=== PATIENT | male | born 1955 | race Caucasian/White ===

== ENCOUNTER 2017-07-16 09:26 | Inpatient (IN) | payer BC ==
[2017-07-05 10:52] VITALS: BMI 35.3
[~2017-07-16 09:26] MED LIST: ACETAMINOPHEN TAB 500 MG TAB PO ONE; DEXAMETHASONE SOD PHOSPHATE 10 MG/ML 1 ML VIAL IV ONE; LACTATED RINGERS 1,000 ML IV SCH; LIDOCAINE 1% 20 ML VIAL (10MG/ML) FOR IV START INTRADERMA PRN; MELOXICAM 7.5 MG TAB PO ONE; MIDAZOLAM 2 MG/2 ML VIAL IV PRN; ONDANSETRON 4 MG/2 ML VIAL IVP ONE; SCOPOLAMINE 1.5MG/72HR PATCH TRANSDERM ONE; TRANEXAMIC ACID 1,000 MG in SODIUM CHLORIDE 0.9% 100 ML IVPB ONE; ceFAZolin 3 GM in SODIUM CHLORIDE 0.9% 100 ML IVPB ONE
[2017-07-16 10:59] LABS: Glucose,Whole Blood 156 mg/dL (75-99)
[2017-07-16] MEDS ORDERED: ROPIVACAINE 246.25 MG, EPINEPHrine 0.5 MG, KETOROLAC 30 MG, cloNIDine HCL/PF 80 MCG, WA... MISCELLANE ONE ×5 (12:33)
[2017-07-16] MEDS ORDERED: PROPOFOL 10 MG/ML 20 ML VIAL IV ONE (12:34)
[2017-07-16] MEDS ORDERED: NALOXONE 0.4 MG/ML 1 ML VIAL IV PRN (12:34)
[2017-07-16] MEDS ORDERED: fentaNYL (PF) 50 MCG/ML 2 ML AMP ONE (12:34)
[2017-07-16] MEDS ORDERED: ONDANSETRON 4 MG/2 ML VIAL IVP PRN (12:34)
[2017-07-16] MEDS ORDERED: NA PHOS,M-B/NA PHOS,DI-BA 133 ML ENEMA RECTAL PRN (12:34)
[2017-07-16] MEDS ORDERED: DIAZEPAM 5 MG TAB PO PRN ×2 (12:34)
[2017-07-16] MEDS ORDERED: SODIUM CHLORIDE 0.9% 100 ML BAG ONE (12:34)
[2017-07-16] MEDS ORDERED: MAGNESIUM HYDROXIDE 2,400 MG/10 ML CUP PO PRN (12:34)
[2017-07-16] MEDS ORDERED: TRANEXAMIC ACID 1,000 MG/10 ML VIAL ONE (12:34)
[2017-07-16] MEDS ORDERED: BISACODYL 10 MG SUPP RECTAL PRN (12:34)
[2017-07-16] MEDS ORDERED: MIDAZOLAM 2 MG/2 ML VIAL ONE (12:34)
[2017-07-16] MEDS ORDERED: HYDROcodone/APAP 5-325MG 1 EACH TAB PO PRN (12:34)
[2017-07-16] MEDS ORDERED: HYDROmorphone 1 MG/ML 1 ML SYRINGE IVP PRN ×3 (12:34)
[2017-07-16] MEDS ORDERED: CLINDAMYCIN 1,800 MG in SODIUM CHLORIDE 0.9% IRRIGATIO 3,000 ML IRRIGATION ONE (13:18)
[2017-07-16] MEDS ORDERED: LACTATED RINGERS 1,000 ML IV ONE ×2 (14:09)
--- NOTE | 2017-07-16 15:16 | P.OP ---
Date of Procedure: 07/16/17 Preoperative Diagnosis: Postoperative Diagnosis: Procedure(s) Performed: PREOPERATIVE DIAGNOSIS: Right knee severe osteoarthritis with very mild genu valgum POSTOPERATIVE DIAGNOSIS: 1. Right knee severe osteoarthritis with very mild genu valgum OPERATION: Right knee cemented total replacement arthroplasty. ANESTHESIA: Spinal ESTIMATED BLOOD LOSS: 50 ml. MACHINING ENGINEER: Eileen Rose PA-C (assistance with: patient positioning, retraction , exposure, hemostasis, leg positioning, implantation, irrigation, closure, dressing) COMPLICATIONS: None apparent. COMPONENTS IMPLANTED: Persona system from [employer] INDICATIONS: Mr. Lee is a 62-year-old male with a history of right knee osteoarthritis and very mild genu valgum. The operation of knee replacement has been discussed at length in the office, as well as potential risks and complications. These are inclusive of, but not limited to: bleeding, infection , scarring, discomfort, blood vessel and nerve damage, need for further surgery , failure to relieve symptoms, persistence, recurrence, or worsening of problems , loosening, dislocation, wear, blood clot, pulmonary embolism, , gait dysfunction, stiffness, and other risks as discussed in the office. The patient elects to proceed and the consent form has been signed. PROCEDURE: The patient was taken to the operating room and positioned on the operating room table in the supine position. Anesthesia was initiated. Care was taken to make sure that all pressure points were adequately padded. The operative lower extremity was prepped and draped in the usual aseptic fashion using ChloraPrep. Ioban drape was used for the case and the patient received intravenous antibiotics within one hour of the incision. A pneumotourniquet and leg kim were used for the case. The limb was exsanguinated with an Esmarch bandage and the tourniquet was inflated to 350 mmHg. Time-out was called confirming the patients identity, side, procedure and administration of antibiotics. The incision was then created midline directly over the knee, carried down through skin and into the subcutaneous tissues and down to fascia. Full thickness subcutaneous medial flap was developed. Medial parapatellar arthrotomy was performed and the interior of the knee was inspected. There was end-stage osteoarthritis of the knee with a mild to moderate genu valgum type deformity. Also noted was moderate osteoporosis , as evidenced by diminished cortical bone density as well as moderate softening of the cancellus bone, discovered during the course of the operation. The fat pad was excised and limited proximal medial release on the tibia was completed using meticulous dissection. The anterior cruciate ligament was taken down. The exposure was excellent. The knee was flexed 90 degrees and the patella was everted. A spot was chosen on the femur approximately 1 cm anterior to the posterior cruciate ligament insertion and an intramedullary hole was created within the femur. The intramedullary guide was then set to 5 degrees of valgus. The distal cutting block was attached and pinned into position. An appropriate amount of distal femoral resection was set. The oscillating saw was then used to make the distal femoral cut. This cut was confirmed to be flat with the flat end of an osteotome. The retractors were placed around the tibia and the tibial surface was addressed. The angle and depth of resection was adjusted using an extramedullary cutting guide. The guide had a built-in 3 degree posterior slope cut. Once the cutting guide was adjusted appropriately and in line with the axis of the tibia and confirmed to be in good position in relation to the second metatarsal and transmalleolar axis, the tibial cut was then created with protection of the posterior neurovascular structures and the collateral ligaments. The tibial cut surface was removed and sized. Femoral sizing was then accomplished using anterior referencing. Care was taken to analyze the posterior condyles for signs of deficiency or severe wear, and adjustments to the guide were made, as appropriate. Moderate to severe posterior spurring was noted, as well as a moderately to severely tight posterior cruciate ligament which therefore was released, see below. 3 degree external rotation pins were placed. The cutting jig for the femur was applied to these pins. The planned cuts were further analyzed prior to performing them with the oscillating saw. No femoral notching was produced. Bone fragments were removed and the cut surfaces were finished, as necessary, with a reciprocating saw. Spacer block technique was then used to confirm that the flexion and extension gaps were equal. Soft tissue releases and adjustment of the tibial and/or femoral cuts were made, as necessary, until the gaps were equal. This included release of the posterior cruciate ligament, which was tight in this patient and , if left unreleased, would have resulted in poor kinematics and possibly early loosening. The femur was then further finished for a posterior cruciate ligament substituting component. Patellar resurfacing was performed using a reamer. The size of the required patellar component was estimated and the patellar surface was then reamed down to a residual thickness which would recreate the [place] thickness with the component. The placement of the patellar component was influenced by the degree of patellar subluxation, if any, noted on the preoperative x-rays. Prior to placing trial components, anesthetic solution consisting of ropivicaine with epinephrine, ketorolac, and clonidine was injected carefully and methodically in a grid pattern using aspiration technique into the soft tissue around the knee circumferentially, starting with the deeper tissues first and progressing to fascia, and then finally the skin/subcutaneous tissue. Particular care was taken when injecting the posterior capsule. The trial components were inserted. The tibial tray was allowed to self center and the patella was noted to track very well. The position of the tibial component was marked and the tibia was then finished for a stemmed tibial component. Cement was mixed on the back table and applied to the final components. Trial components were removed and the cut surfaces of the bone were pulse lavaged thoroughly and dried. Cement was then applied to the tibial surface and pressurized into the surface using finger pressurization technique. The tibial component was then applied and excess cement was removed after it was impacted securely and noted to be flush with the cut surface. In similar fashion, the cement was applied to the cut femoral surface, pressurized in using finger pressurization and the component was impacted into place. Excess cement was removed. The polyethylene spacer was then implanted and locked into position. The patellar component was then applied in similar technique and a patellar clamp was used to hold the patella in place as the cement hardened. Once the cement had fully hardened, the knee was reinspected. Any other cement extrusion was removed and final kinematic testing showed range of motion from 0 to 130 degrees with excellent stability, both medially and laterally and appropriate alignment of the leg. Patellar tracking was excellent. The knee was then thoroughly pulse lavaged with normal saline. The tourniquet was deflated and hemostasis was obtained with electrocautery and IV tranexamic acid, 1 g given at the start of the operation and 1 g at the start of closure. Closure was with #2 Ethibond in the fascia and supplemented with #2 Quill, 2-0 Vicryl suture was used for the subcutaneous tissues and 3-0 Quill for the skin. Dermabond/Steri-Strips were then applied. A lightly compressive dressing was applied using Webril and an Efra wrap. The patient was then transferred to [facility] and taken to the recovery room in stable condition. Sponge and needle counts were correct. Implants: Indications for Procedure: Operative Findings: Description of Procedure:
--- NOTE | 2017-07-16 15:46 | XR ---
EXAMINATION TYPE: XR knee limited RT DATE OF EXAM: 07/16/2017 COMPARISON: NONE TECHNIQUE: Two views submitted HISTORY: Post op FINDINGS: There is a prosthetic knee in near anatomic alignment. There is soft tissue edema and emphysema. Va scular calcifications noted. IMPRESSION: 1. Postoperative change. Appears in near-anatomic alignment
[2017-07-16 15:58] LABS: Glucose,Whole Blood 219 mg/dL (75-99)
[2017-07-16] MEDS: HYDROmorphone 1 MG/ML 1 ML SYRINGE IVP PRN ×2 (16:03→16:10)
[2017-07-16] MEDS ORDERED: INSULIN LISPRO (humaLOG) 300 UNIT/3 ML VIAL SQ ONE (16:03)
[2017-07-16 17:06] LABS: Glucose,Whole Blood 207 mg/dL (75-99)
[2017-07-16] MEDS: SODIUM CHLORIDE 0.9% 1,000 ML IV SCH (17:16)
[2017-07-16] MEDS: INSULIN LISPRO (humaLOG) 300 UNIT/3 ML VIAL SQ SCH ×2 (18:29→20:15)
[2017-07-16 20:13] LABS: Glucose,Whole Blood 220 mg/dL (75-99)
[2017-07-16] MEDS: ceFAZolin 3 GM in SODIUM CHLORIDE 0.9% 100 ML IVPB SCH (20:14)
[2017-07-16] MEDS: ASPIRIN 325 MG TAB PO SCH (20:14)
[2017-07-16] MEDS: HYDROcodone/APAP 5-325MG 1 EACH TAB PO PRN (20:16)
[2017-07-16] MEDS ORDERED: SENNOSIDES-DOCUSATE SODIUM 1 EACH TAB PO SCH (21:00)
[2017-07-17] MEDS: hydrOXYzine PAMOATE 25 MG CAP PO PRN ×2 (01:47→08:37)
[2017-07-17] MEDS: HYDROcodone/APAP 5-325MG 1 EACH TAB PO PRN (01:48)
[2017-07-17] MEDS: SODIUM CHLORIDE 0.9% 1,000 ML IV SCH (05:15)
[2017-07-17] MEDS: ceFAZolin 3 GM in SODIUM CHLORIDE 0.9% 100 ML IVPB SCH (06:16)
[2017-07-17 06:51] LABS: Glucose,Whole Blood 168 mg/dL (75-99)
[2017-07-17 07:21] LABS: Basophils % (A) 0 %; CH 29.9; CHCM 34.8; Eosinophils % (A) 0 %; HCT 37.6 % (39.0-53.0); HDW 2.97; HGB 12.9 gm/dL (13.0-17.5); Luc # (Auto) 0.17; Luc % (Auto) 1; Lymphocytes # (A) 2.2 k/uL (1.0-4.8); Lymphocytes % (A) 15 %; MCH 29.5 pg (25.0-35.0); MCHC 34.3 g/dL (31.0-37.0); MCV 86.2 fL (80.0-100.0); Mean Platelet Volume 6.2; Monocytes # (A) 0.8 k/uL (0-1.0); Monocytes % (A) 5 %; Neutrophils # (A) 11.2 k/uL (1.3-7.7); Neutrophils % (A) 78 %; RBC 4.36 m/uL (4.30-5.90); RDW 14.1 % (11.5-15.5); WBC 14.4 k/uL (3.8-10.6); WBC (Perox) 15.54
[2017-07-17] MEDS ORDERED: HYDROcodone/APAP 7.5-325MG 1 EACH TAB PO PRN ×2 (08:13)
--- NOTE | 2017-07-17 08:24 | P.DS ---
Providers Date of admission: 07/16/17 09:26 Expected date of discharge: 07/17/17 Attending physician: Deric Dupree Consults: 07/16/17 12:42 Consult Physician Routine Consulting Provider: Kvng Neal Consult Reason/Comments: medical management Do you want consulting provider notified?: Yes 07/16/17 18:20 Consult Physician Routine Consulting Provider: Ryne Herrera Consult Reason/Comments: medical managment Do you want consulting provider notified?: Already Contacted Primary care physician: Stated None - Discharge Diagnosis(es) (1) Primary osteoarthritis of right knee Current Visit: Yes Status: Acute (2) S/P total knee arthroplasty Current Visit: Yes Status: Acute Hospital Course: This is a 62-year-old male with known history of degenerative arthritis of the right knee. The patient presents for evaluation. After discussion and consideration patient elects to proceed with total knee arthroplasty. The patient is seen preoperatively by Dr. Dupree and cleared for surgery. Patient is admitted to [facility] on 07/16/2017 for total knee arthroplasty. The procedures performed without complication or sequelae. The patient is doing well postoperatively. Labs and vital signs are stable on day of discharge. On day of discharge patient's knee incision is healing well. There is minimal erythema. There is no drainage noted at this time. There is minimal soft tissue swelling to the knee. Patient has full foot and ankle motion without difficulty or pain. Neurovascular status to the right lower extremity is intact. Patient is discharged home in good condition. Please see med rec for accurate list of home medications. Plan - Discharge Summary New Discharge Prescriptions: New Aspirin 325 mg PO BID #60 tab HYDROcodone/APAP 7.5-325MG [[place] 7.5-325] 1 - 2 tab PO Q4-6H PRN #90 tab PRN Reason: Pain Sennosides-Docusate Sodium [Senokot-S] 1 tab PO BID #60 tablet No Action traMADol HCL [Ultram] 50 mg PO Q8HR PRN PRN Reason: Pain metFORMIN HCL [Glucophage] 1,000 mg PO BID Insulin Glargine [Lantus] 35 unit SQ QAM Discharge Medication List Insulin Glargine [Lantus] 35 unit SQ QAM 07/05/17 [History] metFORMIN HCL [Glucophage] 1,000 mg PO BID 07/05/17 [History] traMADol HCL [Ultram] 50 mg PO Q8HR PRN 07/05/17 [History] Aspirin 325 mg PO BID #60 tab 07/17/17 [Rx] HYDROcodone/APAP 7.5-325MG [[place] 7.5-325] 1 - 2 tab PO Q4-6H PRN #90 tab [Rx] Sennosides-Docusate Sodium [Senokot-S] 1 tab PO BID #60 tablet 07/17/17 [Rx] Follow up Appointment(s)/Referral(s): Deric Dupree MD [STAFF PHYSICIAN] - 2 Weeks Ambulatory/Diagnostic Orders: Continuous Passive Motion (CPM) Machine [DME.AMB1] Time Frame: 2 Weeks, Location : Determined By Patient Activity/Diet/Wound Care/Special Instructions: Weightbearing as tolerated with a walker CPM 5-6h daily Daily dressing changes, keep incision clean and dry May shower if no drainage from incision [facility] with questions or concerns [phone] Discharge Disposition: HOME WITH HOME HEALTH SERVICES
[2017-07-17] MEDS: ASPIRIN 325 MG TAB PO SCH (08:30)
[2017-07-17] MEDS: INSULIN LISPRO (humaLOG) 300 UNIT/3 ML VIAL SQ SCH ×2 (08:33→12:36)
[2017-07-17] MEDS ORDERED: MELOXICAM 7.5 MG TAB PO SCH (09:00)
[2017-07-17 09:10] VITALS: PULSE 75; RESP 14; TEMP 98.1
[2017-07-17 11:18] LABS: Glucose,Whole Blood 181 mg/dL (75-99)
[2017-07-17 11:41] LABS: Hemoglobin A1C 7.8 % (4.2-6.1)
[2017-07-17] MEDS ORDERED: INSULIN GLARGINE 100 UNIT/ML 10 ML VIAL SQ SCH (12:15)
[2017-07-17] MEDS ORDERED: metFORMIN 500 MG TAB PO SCH (12:15)
[2017-07-17 13:18] VITALS: BP 109/70
--- NOTE | 2017-07-17 15:10 | CONS ---
DATE OF CONSULTATION: 07/17/2017 REASON FOR CONSULTATION: Medical management requested by Dr. Dupree. CONSULTATION: This is a very pleasant 62-year-old patient of Dr. Neal. Underwent a right total knee arthroplasty yesterday. Pain is controlled. No nausea or vomiting. Did tolerated some breakfast, no chest pain. Did work with Therapy. Patient's chronic stable medical conditions include diabetes on insulin, DVT as a child, hypertension, osteoarthritis. REVIEW OF SYSTEMS: CONSTITUTIONAL: None. HEENT: None. RESPIRATORY: None. CARDIOVASCULAR: None. GASTROINTESTINAL: None. GENITOURINARY: None. MUSCULOSKELETAL: Pain in different joints. DERMATOLOGICAL: None. HEMATOLOGICAL: None. LYMPHATICS: None. PSYCHIATRY: None. NEUROLOGICAL: None. Past medical history of diabetes, DVT as a child, hypertension, osteoarthritis. PAST SURGICAL HISTORY: Appendectomy, back surgery, tendon from left knee to right knee, bilateral thumb surgery, total right knee arthroplasty. SOCIAL HISTORY: Drinks, cigar rarely, lives by himself. Currently not working. Alcohol none. Family history of lung cancer. HOME MEDICATIONS: Glucophage 1000 mg p.o. b.i.d., Lantus 35 units in the morning, Senokot S 1 tablet p.o. b.i.d. Allergies to PENICILLIN. On examination, temperature 98.1, pulse 75, respirations 14, blood pressure 136/ 95, pulse ox 95% on room air. GENERAL APPEARANCE: Well built, BMI of 35.3, sitting on the edge of bed, comfortable. EYES: Pupil equal, conjunctive normal. HEENT: Oral cavity normal. NECK: JVD not raised, mass not palpable. RESPIRATORY EFFORT: Lungs are clear. CARDIOVASCULAR: First and second sounds are normal. No edema. ABDOMEN: Soft, nontender. Liver and spleen not palpable. LYMPHATICS: No lymph node palpable in neck and axillae. PSYCHIATRY: Alert and oriented x3, mood and affect normal. EXTREMITIES: Right knee in a dressing. INVESTIGATIONS: White count 14.4, hemoglobin 12.9, Accu-Cheks are noted. ASSESSMENT: 1. Right total knee arthroplasty. 2. Primary osteoarthritis. 3. Obesity, body mass index of 35.3. 4. Diabetes mellitus type 2, chronically on insulin. 5. Leukocytosis, likely reactive from surgery. No clinical evidence of infection. 6. Essential hypertension. PLAN: 1. For DVT prophylaxis, patient is getting aspirin by Dr. Dupree. 2. Resume insulin, follow Accu-Cheks. Patient should see a junior software developer as an outpatient for weight loss measures. He will follow up with his family doctor in a week's time. Thank you Dr. Dupree. VLAD
== END 2017-07-17 13:05 | disposition home health service (06) | DRG 470 ==
LOC: 2ORMAIN 09:26 → 3SUR 15:54
PROVIDERS: ADMIT Orthopaedic Surgery; ATTEND Orthopaedic Surgery
PROC: 0SRC0J9 Replacement of Right Knee Joint with Synthetic Substitute, Cemented, Open Approach (ICD-10-PCS; principal; 2017-07-16 12:30)
DX: M17.11 Unilateral primary osteoarthritis, right knee (principal); E66.9 Obesity, unspecified; I10 Essential (primary) hypertension; E11.9 Type 2 diabetes mellitus without complications; M21.061 Valgus deformity, not elsewhere classified, right knee; H91.90 Unspecified hearing loss, unspecified ear; M81.0 Age-related osteoporosis without current pathological fracture; Z68.35 Body mass index [BMI] 35.0-35.9, adult; Z79.84 Long term (current) use of oral hypoglycemic drugs; Z79.4 Long term (current) use of insulin; Z79.899 Other long term (current) drug therapy; Z86.718 Personal history of other venous thrombosis and embolism; Z88.0 Allergy status to penicillin
CPT/HCPCS: 83036; 85025; 88300

== ENCOUNTER 2017-07-23 08:23 | Emergency (ER) | payer BC ==
[2017-07-23 08:28] VITALS: BP 133/74; PULSE 77; RESP 18; TEMP 98.8
[2017-07-23] MEDS ORDERED: HYDROcodone/APAP 7.5-325MG 1 EACH TAB PO ONE (08:44)
--- NOTE | 2017-07-23 08:47 | ED ---
Extremity Problem HPI - General Chief complaint: Extremity Problem,Nontraumatic Stated complaint: post op leg pain Time Seen by Provider: 07/23/17 08:33 Source: patient, RN notes reviewed Mode of arrival: wheelchair Limitations: no limitations - History of Present Illness Initial comments: Patient 62-year-old male status post right knee replacement 2 weeks, who presents emergency room today with chief complaint of increased pain and redness to the right lower extremity. Patient does admit that at some discomfort yesterday with increased redness over the anterior aspect today with increased pain. Patient denies any other complaints or symptoms. Patient denies any recent fever, chills, shortness of breath, chest pain, back pain, abdominal pain, nausea or vomiting, numbness or tingling, dysuria or hematuria, constipation or diarrhea, headaches or visual changes, or any other complaints. - Related Data Home Medications Medication Instructions Recorded Confirmed Insulin Glargine [Lantus] 35 unit SQ DAILY 07/05/17 07/23/17 metFORMIN HCL [Glucophage] 1,000 mg PO BID 07/05/17 07/23/17 traMADol HCL [Ultram] 50 mg PO Q8HR PRN 07/05/17 07/23/17 Previous Rx's Medication Instructions Recorded Aspirin 325 mg PO BID #60 tab 07/17/17 HYDROcodone/APAP 7.5-325MG [[place] 1 - 2 tab PO Q4-6H PRN #90 tab 07/17/17 7.5-325] Sennosides-Docusate Sodium 1 tab PO BID #60 tablet 07/17/17 [Senokot-S] Cephalexin [Keflex] 500 mg PO Q12HR 10 Days 07/23/17 Allergies Allergy/AdvReac Type Severity Reaction Status Date / Time Penicillins Allergy Unknown Unknown Verified 07/23/17 09:34 Childhood Review of Systems ROS Statement: Those systems with pertinent positive or pertinent negative responses have been documented in the HPI. ROS Other: All systems not noted in ROS Statement are negative. Past Medical History Past Medical History: Diabetes Mellitus, Deep Vein Thrombosis (DVT), Hypertension, Osteoarthritis (OA) Additional Past Medical History / Comment(s): BLOOD CLOT IN RIGHT LEG A CHILD. , STATES JAUNDICE (HEPATITIS) CHILD., NO CURRENT BP MEDS., RIGHT KNEE GIVES OUT AND HE HAS FALLEN DOWN STAIRS- LEFT KNEE ABRASION. History of Any Multi-Drug Resistant Organisms: None Reported Past Surgical History: Appendectomy, Back Surgery, Orthopedic Surgery Additional Past Surgical History / Comment(s): ARTHROSCOPY KNEE, TENDON FROM LEFT KNEE TO RIGHT KNEE., JOSSELYN THUMB SURGERY, TOTAL RIGHT KNEE ARTHROPLASTY. Past Anesthesia/Blood Transfusion Reactions: No Reported Reaction Additional Past Anesthesia/Blood Transfusion Reaction / Comment(s): WAKES UP DURING SURGERY. Past Psychological History: No Psychological Hx Reported Smoking Status: Current some day smoker Past Alcohol Use History: None Reported Past Drug Use History: None Reported - Past Family History Father History Unknown: Yes Family Medical History: Cancer Additional Family Medical History / Comment(s): LUNG CANCER General Exam - General Exam Comments Initial Comments: General: The patient is awake and alert, in no distress, and does not appear acutely ill. Neck: The neck is supple, there is no tenderness or JVD. Cardiovascular: There is a regular rate and rhythm. No murmur, rub or gallop is appreciated. Respiratory: Lungs are clear to auscultation, respirations are non-labored, breath sounds are equal. No wheezes, stridor, rales, or rhonchi. Musculoskeletal: Patient does have surgical incision over the right anterior aspect of the right knee. Appears to be healing well. There is no redness or erythema locally to this area. Patient does have small abrasion to the lower aspect anterior brown. There is some local redness. There is some redness to the anterior aspect of the right lower leg. He does have tenderness in the back of the calf with a positive Homans. Sensations are intact pulses equal bilaterally 2+. Shows good range of motion. Neurological: A&O x 3. CN II-XII intact, There are no obvious motor or sensory deficits. Coordination appears grossly intact. Speech is normal. Psychiatric: Normal mood and affect. Limitations: no limitations Course Vital Signs 07/23/17 08:24 Temperature 98.8 F Pulse Rate 77 Respiratory 18 Rate Blood Pressure 133/74 O2 Sat by Pulse 99 Oximetry Medical Decision Making - Medical Decision Making Case discussed in detail with attending physician Dr. Lenz. Patient reexamined at this time shows no signs of distress resting comfortably. Also negative for any evidence of DVT. Patient does have some redness to the anterior aspect of the left brown. There is no redness around the incision site of the left knee. There is no evidence for an infected joint. Patient's pain is down lower over the redness over the brown area. Patient will be started on antibiotic. He is advised follow-up with his orthopedic doctor tomorrow. Advised return for any other concerns. Disposition Clinical Impression: Cellulitis of leg, right Disposition: HOME SELF-CARE Condition: Good Instructions: Cellulitis (ED) Additional Instructions: Please use antibiotic as prescribed. Please follow-up with orthopedics tomorrow. Please return to emergency room symptoms increase or worsen or for new concerns as discussed. Prescriptions: Cephalexin [Keflex] 500 mg PO Q12HR 10 Days Referrals: Kvng Neal DO [Primary Care Provider] - 1-2 days Deric Dupree MD [STAFF PHYSICIAN] - 1-2 days Time of Disposition: 09:37
--- NOTE | 2017-07-23 09:23 | US ---
EXAMINATION TYPE: US venous doppler duplex LE RT DATE OF EXAM: 07/23/2017 9:17 AM COMPARISON: NONE CLINICAL HISTORY: Pain. Recent right knee replacement surgery 2 weeks ago. SIDE PERFORMED: Right TECHNIQUE: The lower extremity deep venous system is examined utilizing real time linear array sonog alexander with graded compression, doppler sonography and color-flow sonography. VESSELS IMAGED: External Iliac Vein (EIV) Common Femoral Vein Deep Femoral Vein Greater Saphenous Vein * Femoral Vein Popliteal Vein Small Saphenous Vein * Proximal Calf Veins (* superficial vessels) Right Leg: Negative for DVT Grayscale, color doppler, spectral doppler imaging performed of the deep veins of the right lower ext remity. There is normal flow, compressibility, and vascular waveforms identified. IMPRESSION: No ultrasound evidence for acute DVT in the right lower extremity.
== END 2017-07-23 10:00 | disposition home or self-care (01) ==
LOC: EC 08:23
DX: L03.115 Cellulitis of right lower limb (principal); E11.9 Type 2 diabetes mellitus without complications; F17.200 Nicotine dependence, unspecified, uncomplicated; Z96.651 Presence of right artificial knee joint; Z86.718 Personal history of other venous thrombosis and embolism; Z88.0 Allergy status to penicillin; Z79.4 Long term (current) use of insulin; Z79.84 Long term (current) use of oral hypoglycemic drugs
CPT/HCPCS: 99283

== ENCOUNTER → 2017-07-24 | Outpatient (CLI) | payer BC ==
[2017-07-24 15:01] LABS: CHCM 34.4; HCT 37.3 % (39.0-53.0); HDW 3.33; HGB 13.1 gm/dL (13.0-17.5); MCH 29.8 pg (25.0-35.0); MCHC 35.1 g/dL (31.0-37.0); MCV 84.7 fL (80.0-100.0); Mean Platelet Volume 6.6; RBC 4.41 m/uL (4.30-5.90); RDW 13.7 % (11.5-15.5); WBC 13.8 k/uL (3.8-10.6)
[2017-07-24 16:54] LABS: RBC, Body Fluid 182000 /uL
[2017-07-24 19:45] LABS: Erythrocyte Sedimentation Rate 46 mm/hr (0-15)
== END | disposition home or self-care (01) ==
LOC: LABWHC1 14:30 → EDSTATUS 14:36
PROVIDERS: ATTEND Orthopaedic Surgery
DX: M17.11 Unilateral primary osteoarthritis, right knee (principal); E11.9 Type 2 diabetes mellitus without complications; S83.519D Sprain of anterior cruciate ligament of unspecified knee, subsequent encounter; Z47.1 Aftercare following joint replacement surgery; Z96.651 Presence of right artificial knee joint; M25.061 Hemarthrosis, right knee
CPT/HCPCS: 36415; 83520; 85027; 85652; 86140; 87070; 87075; 87205; 89050

== ENCOUNTER 2017-11-26 05:43 | Observation (INO) | payer BC ==
[~2017-11-26 05:43] MED LIST changes: +CLINDAMYCIN 900 MG in DEXTROSE 5% IN WATER 50 ML IVPB ONE; -DEXAMETHASONE SOD PHOSPHATE 10 MG/ML 1 ML VIAL IV ONE; -MIDAZOLAM 2 MG/2 ML VIAL IV PRN; -SCOPOLAMINE 1.5MG/72HR PATCH TRANSDERM ONE; -ceFAZolin 3 GM in SODIUM CHLORIDE 0.9% 100 ML IVPB ONE
[2017-11-26 07:12] LABS: Glucose,Whole Blood 127 mg/dL (75-99)
[2017-11-26] MEDS ORDERED: ROPIVACAINE 246.25 MG, EPINEPHrine 0.5 MG, KETOROLAC 30 MG, cloNIDine HCL/PF 80 MCG, WA... MISCELLANE ONE ×5 (07:51)
[2017-11-26] MEDS ORDERED: PHENYLEPHRINE-0.9% NACL SYG 1 MG/10 ML SYRINGE ONE (08:12)
[2017-11-26] MEDS ORDERED: GLYCOPYRROLATE 0.2 MG/ML 2 ML VIAL ONE (08:12)
[2017-11-26] MEDS ORDERED: SODIUM CHLORIDE 0.9% 100 ML BAG ONE (08:12)
[2017-11-26] MEDS ORDERED: MIDAZOLAM 2 MG/2 ML VIAL ONE (08:12)
[2017-11-26] MEDS ORDERED: KETAMINE 10 MG/ML 20 ML VIAL ONE (08:12)
[2017-11-26] MEDS ORDERED: fentaNYL (PF) 50 MCG/ML 2 ML AMP ONE (08:12)
[2017-11-26] MEDS ORDERED: diphenhydrAMINE 50 MG/ML 1 ML VIAL ONE (08:12)
[2017-11-26] MEDS ORDERED: PROPOFOL 10 MG/ML 20 ML VIAL IV ONE (08:12)
[2017-11-26] MEDS ORDERED: TRANEXAMIC ACID 1,000 MG/10 ML VIAL ONE (08:12)
[2017-11-26] MEDS ORDERED: SODIUM CHLORIDE 0.9% 50 ML with ceFAZolin 3,000 MG IV ONE ×2 (08:52)
[2017-11-26] MEDS ORDERED: LACTATED RINGERS 1,000 ML IV ONE ×2 (09:08)
[2017-11-26] MEDS ORDERED: CLINDAMYCIN 1,800 MG in SODIUM CHLORIDE 0.9% IRRIGATIO 3,000 ML IRRIGATION ONE (09:09)
[2017-11-26] MEDS ORDERED: NA PHOS,M-B/NA PHOS,DI-BA 133 ML ENEMA RECTAL PRN (11:30)
[2017-11-26] MEDS ORDERED: ACETAMINOPHEN TAB 325 MG TAB PO PRN (11:30)
[2017-11-26] MEDS ORDERED: NALOXONE 0.4 MG/ML 1 ML VIAL IV PRN (11:30)
[2017-11-26] MEDS ORDERED: HYDROcodone/APAP 7.5-325MG 1 EACH TAB PO PRN (11:30)
[2017-11-26] MEDS ORDERED: MAGNESIUM HYDROXIDE 2,400 MG/10 ML CUP PO PRN (11:30)
[2017-11-26] MEDS ORDERED: TEMAZEPAM 15 MG CAP PO PRN (11:30)
[2017-11-26] MEDS ORDERED: HYDROmorphone 2 MG/ML 1 ML SYRINGE IVP PRN (11:30)
[2017-11-26] MEDS ORDERED: BISACODYL 10 MG SUPP RECTAL PRN (11:30)
[2017-11-26] MEDS ORDERED: ONDANSETRON 4 MG/2 ML VIAL IVP PRN (11:30)
[2017-11-26 11:32] LABS: Glucose,Whole Blood 149 mg/dL (75-99)
--- NOTE | 2017-11-26 11:56 | XR ---
EXAMINATION TYPE: XR knee limited LT DATE OF EXAM: 11/26/2017 COMPARISON: NONE TECHNIQUE: Two views submitted HISTORY: Post op FINDINGS: There is a prosthetic knee in near anatomic alignment. There is soft tissue edema and emphysema. IMPRESSION: 1. Postoperative change. Appears in near-anatomic alignment
--- NOTE | 2017-11-26 12:09 | P.OP ---
Date of Procedure: 11/26/17 Procedure(s) Performed: PREOPERATIVE DIAGNOSIS: 1 . Left knee severe osteoarthritis with genu varum. 2. Status post ACL reconstruction with metallic screws POSTOPERATIVE DIAGNOSIS: 1. Left knee severe osteoarthritis with genu varum 2. Status post ACL reconstruction with metallic screws OPERATION: Left knee cemented total replacement arthroplasty with removal of one ACL interference screw (tibial). ANESTHESIA: Spinal ESTIMATED BLOOD LOSS: 150 ml. SALES AND MARKETING PROFESSIONAL: Berenice Appiah PA-C (assistance with: patient positioning, retraction, exposure, hemostasis, leg positioning, implantation, irrigation, closure, dressing) COMPLICATIONS: None apparent. COMPONENTS IMPLANTED: Persona system from [employer] INDICATIONS: Yvan is a 62-year-old male with a history of knee osteoarthritis who is many years status post a ACL reconstruction of his left knee. This was a bone tendon bone operation with metallic interference screws placed in both the tibia and the femur. He wishes to have knee replacement at this point. The operation of knee replacement with removal of one or both screws has been discussed at length in the office, as well as potential risks and complications. These are inclusive of, but not limited to: bleeding, infection , scarring, discomfort, blood vessel and nerve damage, need for further surgery , failure to relieve symptoms, persistence, recurrence, or worsening of problems , loosening, dislocation, wear, blood clot, pulmonary embolism, , gait dysfunction, stiffness, and other risks as discussed in the office. The patient elects to proceed and the consent form has been signed. PROCEDURE: The patient was taken to the operating room and positioned on the operating room table in the supine position. Anesthesia was initiated. Care was taken to make sure that all pressure points were adequately padded. The operative lower extremity was prepped and draped in the usual aseptic fashion using ChloraPrep. Ioban drape was used for the case and the patient received intravenous antibiotics within one hour of the incision. A pneumotourniquet and leg kim were used for the case. The limb was exsanguinated with an Esmarch bandage and the tourniquet was inflated to 350 mmHg. Time-out was called confirming the patient's identity, side, procedure and administration of antibiotics and tranexamic acid. The incision was then created midline directly over the knee, carried down through skin and into the subcutaneous tissues and down to fascia. Full thickness subcutaneous medial flap was developed. Medial parapatellar arthrotomy was performed and the interior of the knee was inspected. There was end-stage osteoarthritis of the knee with a mild to moderate genu varum type deformity. The fat pad was excised and proximal medial release on the tibia was completed using meticulous dissection and a curved osteotome. This procedure revealed the tibial interference screw , which was somewhat prominent outside of the bone and was easily removed using a 3.5 mm hexhead screwdriver. The anterior cruciate ligament was taken down. Note was made of significant attrition of the anterior and significant degenerative appearance of the posterior cruciate ligaments. The exposure was excellent. The knee was flexed 90 degrees and the patella was everted. A spot was chosen on the femur approximately 1 cm anterior to the posterior cruciate ligament insertion and an intramedullary hole was created within the femur. The intramedullary guide was then set to 5 degrees of valgus. The distal cutting block was attached and pinned into position. An appropriate amount of distal femoral resection was set. The oscillating saw was then used to make the distal femoral cut. This cut was confirmed to be flat with the flat end of an osteotome. The retractors were placed around the tibia and the tibial surface was addressed. The angle and depth of resection was adjusted using an extramedullary cutting guide. The guide had a built-in 3 degree posterior slope cut. Once the cutting guide was adjusted appropriately and in line with the axis of the tibia and confirmed to be in good position in relation to the second metatarsal and transmalleolar axis, the tibial cut was then created with protection of the posterior neurovascular structures and the collateral ligaments. The tibial cut surface was removed and sized. Femoral sizing was then accomplished using anterior referencing. Care was taken to analyze the posterior condyles for signs of deficiency or severe wear, and adjustments to the guide were made, as appropriate. 3 degree external rotation pins were placed. The cutting jig for the femur was applied to these pins. The planned cuts were further analyzed prior to performing them with the oscillating saw. No femoral notching was produced. Bone fragments were removed and the cut surfaces were finished, as necessary, with a reciprocating saw. Spacer block technique was then used to confirm that the flexion and extension gaps were equal. Soft tissue releases and adjustment of the tibial and/or femoral cuts were made, as necessary, until the gaps were equal. This included release of the posterior cruciate ligament, which was tight in this patient and , if left unreleased, would have resulted in poor kinematics and possibly early loosening. The femur was then further finished for a posterior cruciate ligament substituting component. The interference screw in the femur did not interfere with any of the cuts. Patellar resurfacing was performed using a reamer. The size of the required patellar component was estimated and the patellar surface was then reamed down to a residual thickness which would recreate the [place] thickness with the component. The placement of the patellar component was influenced by the degree of patellar subluxation, if any, noted on the preoperative x-rays. Prior to placing trial components, anesthetic solution consisting of ropivicaine with epinephrine, ketorolac, and clonidine was injected carefully and methodically in a grid pattern using aspiration technique into the soft tissue around the knee circumferentially, starting with the deeper tissues first and progressing to fascia, and then finally the skin/subcutaneous tissue. Particular care was taken when injecting the posterior capsule. The trial components were inserted. The tibial tray was allowed to self center and the patella was noted to track very well. The position of the tibial component was marked and the tibia was then finished for a stemmed tibial component. Cement was mixed on the back table and applied to the final components. Trial components were removed and the cut surfaces of the bone were pulse lavaged thoroughly and dried. Cement was then applied to the tibial surface and pressurized into the surface using finger pressurization technique. The tibial component was then applied and excess cement was removed after it was impacted securely and noted to be flush with the cut surface. In similar fashion, the cement was applied to the cut femoral surface, pressurized in using finger pressurization and the component was impacted into place. Excess cement was removed. The polyethylene spacer was then implanted and locked into position. The patellar component was then applied in similar technique and a patellar clamp was used to hold the patella in place as the cement hardened. Once the cement had fully hardened, the knee was reinspected. Any other cement extrusion was removed and final kinematic testing showed range of motion from 0 to 130 degrees with excellent stability, both medially and laterally and appropriate alignment of the leg. Patellar tracking was excellent. The knee was then thoroughly pulse lavaged with normal saline. The tourniquet was deflated and hemostasis was obtained with electrocautery and IV tranexamic acid, 1 g given prior to inflation of the tourniquet and another gram given at the time of closure. Closure was with #2 Ethibond in the fascia and supplemented with #2 Quill, 2-0 Vicryl suture was used for the subcutaneous tissues and 3-0 Quill for the skin. Dermabond/Steri-Strips were then applied. A lightly compressive dressing was applied using Webril and an Efra wrap. The patient was then transferred to [facility] and taken to the recovery room in stable condition. Sponge and needle counts were correct.
[2017-11-26] MEDS: HYDROmorphone 0.5 MG/0.5 ML SYRINGE IVP PRN ×4 (12:35→13:00)
[2017-11-26] MEDS: LACTATED RINGERS 1,000 ML IV SCH ×2 (15:09→16:57)
[2017-11-26] MEDS ORDERED: ceFAZolin 3 GM in SODIUM CHLORIDE 0.9% 100 ML IVPB SCH (16:00)
[2017-11-26] MEDS ORDERED: ceFAZolin 3 GM in SODIUM CHLORIDE 0.9% 100 ML IVPB ONE (16:00)
[2017-11-26] MEDS ORDERED: INSULIN DETEMIR 100 UNIT/ML 10 ML VIAL SQ ONE (16:45)
--- NOTE | 2017-11-26 16:50 | P.CONS ---
History of Present Illness - Reason for Consult Consult date: 11/26/17 diabetic management Requesting physician: Deric Dupree - Chief Complaint left knee pain - History of Present Illness Patient is a 62-year-old male past medical history of diabetes, arthritis, hearing loss, and morbid obesity presented for elective total knee arthroplasty. He underwent this on 11/26 without complications. We were asked to follow the patient for diabetic management. He did not take his insulin on the day of surgery. His morning blood sugar was 188 and his blood sugar postoperatively was 149. Patient seen and examined at bedside. He states that prior to surgery he was having some sinus drainage which is chronic for him this time of year. He is not taking any medications for it. He states he normally takes Lantus 65 units at night and takes NovoLog as needed if his blood sugar is greater than 250. He believes he takes 40 units at that number. He also takes metformin 1000 units twice daily. He did not take any medications before surgery. After surgery he is complaining of some left knee pain as well as some lightheadedness. He denies any nausea or vomiting. He has not been sick or ill recently. He denies any chest pain shortness of breath, diarrhea, constipation, or dysuria. He has chronic urinary frequency. Review of Systems Pertinent positives and negatives as per HPI, remainder of 12 point review of systems is negative. Past Medical History Past Medical History: Diabetes Mellitus, Deep Vein Thrombosis (DVT), Osteoarthritis (OA) Additional Past Medical History / Comment(s): BLOOD CLOT IN RIGHT LEG A CHILD. , STATES JAUNDICE (HEPATITIS) CHILD. History of Any Multi-Drug Resistant Organisms: None Reported Past Surgical History: Appendectomy, Back Surgery, Orthopedic Surgery Additional Past Surgical History / Comment(s): ARTHROSCOPY KNEE, TENDON FROM LEFT KNEE TO RIGHT KNEE., JOSSELYN THUMB SURGERY, TOTAL RIGHT KNEE ARTHROPLASTY. DISCECTOMY LUMBAR SPINE. Past Anesthesia/Blood Transfusion Reactions: No Reported Reaction Additional Past Anesthesia/Blood Transfusion Reaction / Comm: WAKES UP DURING SURGERY. Smoking Status: Current some day smoker Additional History: His children live with him. He was using a cane and walker prior to surgery. - Past Family History Father History Unknown: Yes Family Medical History: Cancer Additional Family Medical History / Comment(s): LUNG CANCER Mother Family Medical History: CVA/TIA Medications and Allergies Home Medications Medication Instructions Recorded Confirmed Type Insulin Glargine [Lantus] 65 unit SQ DAILY 07/05/17 11/15/17 History metFORMIN HCL [Glucophage] 1,000 mg PO BID 07/05/17 11/15/17 History Aspirin 325 mg PO Q6H PRN 11/15/17 11/26/17 History Insulin Aspart [NovoLOG See Protocol SQ ACHS 11/15/17 11/15/17 History (formulary)] Allergies Allergy/AdvReac Type Severity Reaction Status Date / Time Penicillins Allergy Unknown Unknown Verified 11/26/17 06:41 Childhood Physical Exam Osteopathic Statement: *. No significant issues noted on an osteopathic structural exam other than those noted in the History and Physical/Consult. Vitals: Vital Signs Temp Pulse Pulse Resp BP Pulse Ox 11/26/17 15:00 73 18 131/71 97 11/26/17 14:05 79 18 129/72 98 11/26/17 13:29 82 18 123/72 98 11/26/17 13:00 75 18 118/66 94 L 11/26/17 12:30 89 18 118/70 94 L 11/26/17 12:00 74 18 111/62 95 11/26/17 11:45 78 18 110/68 97 11/26/17 11:30 77 14 110/68 98 11/26/17 11:13 97.9 F 83 14 111/65 98 11/26/17 06:44 98.0 F 78 18 137/78 94 L Intake and Output 11/26/17 11/26/17 11/26/17 06:59 14:59 22:59 Intake Total 2207 400 Output Total 400 100 Balance 1807 300 Intake: IV 2207 400 Output: Urine 100 Estimated Blood Loss 400 General: non toxic, no distress, appears at stated age, Obese Derm: no unusual rashes/lesions no unusual ecchymoses, warm, dry, dressing in place over left leg Head: atraumatic, normocephalic, symmetric Eyes: EOMI, no lid lag, anicteric sclera, pupils equal round reactive to light ENT: Nose and ears atraumatic, no thrush, no pharyngeal erythema Neck: No thyromegaly, no cervical lymphadenopathy, trachea midline, supple Mouth: no lip lesion, mucus membranes moist Cardiovascular: S1S2 reg, no murmur, positive posterior tibial pulse bilateral, no edema, capillary refill less than 2 seconds Lungs: CTA bilateral, no rhonchi, no rales , no accessory muscle use Abdominal: soft, nontender to palpation, no guarding, no appreciable organomegaly, normal bowel sounds Ext: no gross muscle atrophy, muscle strength 5 out of 5 in b/l upper extremities grossly, no contractures, Neuro: CN II-XI grossly intact, light touch intact all 4 extremities, finger to nose within normal limits, Psych: Alert, oriented, appropriate affect Results Labs: Abnormal Lab Results - Last 24 Hours (Table) 11/26/17 11/26/17 Range/Units 06:59 11:30 POC Glucose (mg/dL) 127 H 149 H (75-99) mg/dL Assessment and Plan Assessment: Left total knee arthroplasty postop day 0 secondary to arthritis -Pain control -DVT prophylaxis per orthopedics -PT/OT -Bowel regiment -Check CBC and basic metabolic profile in a.m. Diabetes mellitus type 2 with insulin use -Give Lantus 20 units tonight to cover his blood sugars now that he is eating -Sliding-scale insulin -Check hemoglobin A1c -Hold metformin today -Anticipate resuming metformin and home Lantus dose in a.m. Will await to see how blood sugar is doing after eating. Morbid obesity -Structured outpatient weight loss DVT prophylaxis: SCDs Discussed with: Patient, nursing Anticipated discharge: 48-[address]: await physical therapy recs A total of 45 minutes was spent on the care of this complex patient more than 50 % of the time was spent in counseling and care coordination.
[2017-11-26] MEDS: hydrOXYzine PAMOATE 25 MG CAP PO PRN ×2 (17:05→22:42)
[2017-11-26] MEDS: HYDROcodone/APAP 7.5-325MG 1 EACH TAB PO PRN ×2 (17:05→22:42)
[2017-11-26 17:23] VITALS: BMI 40.0
[2017-11-26 17:27] LABS: Glucose,Whole Blood 117 mg/dL (75-99)
[2017-11-26] MEDS: INSULIN ASPART 100 UNIT/ML 1 ML 10 ML VIAL SQ SCH ×2 (18:55→20:50)
[2017-11-26] MEDS: HYDROmorphone 2 MG/ML 1 ML SYRINGE IVP PRN (19:38)
[2017-11-26 19:49] LABS: Glucose,Whole Blood 163 mg/dL (75-99)
[2017-11-26] MEDS: ASPIRIN 325 MG TAB PO SCH (20:50)
[2017-11-26] MEDS ORDERED: SENNOSIDES-DOCUSATE SODIUM 1 EACH TAB PO SCH (21:00)
[2017-11-27] MEDS: HYDROmorphone 2 MG/ML 1 ML SYRINGE IVP PRN ×2 (00:45→06:40)
[2017-11-27] MEDS: HYDROcodone/APAP 7.5-325MG 1 EACH TAB PO PRN ×2 (04:36→09:35)
[2017-11-27] MEDS: hydrOXYzine PAMOATE 25 MG CAP PO PRN ×2 (04:37→09:36)
[2017-11-27] MEDS: LACTATED RINGERS 1,000 ML IV SCH ×2 (06:39→07:10)
[2017-11-27 06:54] LABS: Glucose,Whole Blood 165 mg/dL (75-99)
[2017-11-27 07:08] VITALS: BP 158/77; PULSE 103; RESP 18; TEMP 99.4
[2017-11-27] MEDS: ASPIRIN 325 MG TAB PO SCH (07:09)
[2017-11-27 07:37] LABS: Basophils # (A) 0.1 k/uL (0-0.2); Basophils % (A) 1 %; Eosinophils # (A) 0.4 k/uL (0-0.7); Eosinophils % (A) 4 %; HCT 33.2 % (39.0-53.0); Lymphocytes # (A) 2.2 k/uL (1.0-4.8); Lymphocytes % (A) 24 %; MCHC 33.3 g/dL (31.0-37.0); MCV 84.2 fL (80.0-100.0); Monocytes # (A) 0.6 k/uL (0-1.0); Monocytes % (A) 6 %; Neutrophils # (A) 6.2 k/uL (1.3-7.7); Neutrophils % (A) 65 %; Platelet Count 258 k/uL (150-450); RBC 3.94 m/uL (4.30-5.90); RDW 15.6 % (11.5-15.5); WBC 9.5 k/uL (3.8-10.6)
--- NOTE | 2017-11-27 08:17 | P.DS ---
Providers Date of admission: 11/27/17 01:30 Expected date of discharge: 11/27/17 Attending physician: Deric Dupree Consults: 11/26/17 11:30 Consult Physician Routine Consulting Provider: Kandis Espinoza Consult Reason/Comments: Medical management Do you want consulting provider notified?: Yes Primary care physician: Kvng Neal - Discharge Diagnosis(es) (1) Status post total left knee replacement Current Visit: Yes Status: Acute (2) Osteoarthritis of left knee Current Visit: Yes Status: Acute Hospital Course: This is a 62-year-old male who was last seen with complaint of continued left knee pain. The patient has a known history of degenerative arthritis of the left knee and presents to discuss surgical options. After discussion and consideration the patient elects to proceed with total left knee arthroplasty. The patient is seen preoperatively by Dr. Neal and cleared for surgery. The patient is admitted to [facility] for total left knee arthroplasty. The procedures performed without complication or sequelae. He is doing well postoperatively. Vital signs are stable at discharge. Labs are stable at discharge. the patient is ambulating well with walker with minimal assistance. The patient is discharged to home on postop day #1 pending medical clearance. Please see orders and refer to the [facility] rec for accurate list of medications. Patient Condition at Discharge: Good Plan - Discharge Summary Discharge Rx Participant: Yes New Discharge Prescriptions: New Aspirin 325 mg PO BID #120 tab HYDROcodone/APAP 10-325MG [[place] 10-325] 1 - 2 tab PO Q4-6H PRN #90 tab PRN Reason: Pain Sennosides-Docusate Sodium [Senokot-S] 1 tab PO BID #60 tablet No Action metFORMIN HCL [Glucophage] 1,000 mg PO BID Insulin Glargine [Lantus] 70 unit SQ DAILY Insulin Aspart [NovoLOG (formulary)] See Protocol SQ ACHS Aspirin 325 mg PO Q6H PRN PRN Reason: Pain Discharge Medication List Insulin Glargine [Lantus] 70 unit SQ DAILY 07/05/17 [History] metFORMIN HCL [Glucophage] 1,000 mg PO BID 07/05/17 [History] Aspirin 325 mg PO Q6H PRN 11/15/17 [History] Insulin Aspart [NovoLOG (formulary)] See Protocol SQ ACHS 11/15/17 [History] Aspirin 325 mg PO BID #120 tab 11/27/17 [Rx] HYDROcodone/APAP 10-325MG [[place] 10-325] 1 - 2 tab PO Q4-6H PRN #90 tab [Rx] Sennosides-Docusate Sodium [Senokot-S] 1 tab PO BID #60 tablet 11/27/17 [Rx] Follow up Appointment(s)/Referral(s): Berenice Appiah, PAC [[facility] [employer]] - 2 Weeks Ambulatory/Diagnostic Orders: Continuous Passive Motion (CPM) Machine [DME.AMB1] Time Frame: 3 Weeks, Facility : [facility], Location: Case Management Activity/Diet/Wound Care/Special Instructions: May bear weight as tolerated with walker. May shower if no drainage from incision. CPM 5-6 hours daily. Discharge Disposition: HOME WITH HOME HEALTH SERVICES
[2017-11-27] MEDS: INSULIN ASPART 100 UNIT/ML 1 ML 10 ML VIAL SQ SCH ×2 (08:20→12:49)
[2017-11-27 08:26] LABS: Anion Gap 9 mmol/L; Blood Urea Nitrogen 15 mg/dL (9-20); Calcium 8.8 mg/dL (8.4-10.2); Carbon Dioxide 27 mmol/L (22-30); Chloride 98 mmol/L (98-107); Glucose 155 mg/dL (74-99); Potassium 3.9 mmol/L (3.5-5.1); Sodium 134 mmol/L (137-145)
[2017-11-27] MEDS ORDERED: INSULIN DETEMIR 100 UNIT/ML 10 ML VIAL SQ SCH (09:00)
[2017-11-27] MEDS ORDERED: MELOXICAM 7.5 MG TAB PO SCH (09:00)
[2017-11-27 11:34] LABS: Glucose,Whole Blood 204 mg/dL (75-99)
--- NOTE | 2017-11-27 11:42 | P.PN ---
Subjective Progress Note Date: 11/27/17 Principal diagnosis: L knee pain Patient is a 62-year-old male past medical history of diabetes, arthritis, hearing loss, and morbid obesity presented for elective total knee arthroplasty. He underwent this on 11/26 without complications. We were asked to follow the patient for diabetic management. Patient seen and examined at bedside. States pain is well controlled. He is feeling tired this morning. He states his appetite has been slightly less than normal. He denies any nausea, vomiting, chest pain, shortness of breath, and constipation we discussed the fact that his sugars may be better controlled if he split his Lantus dose to 35 units in the morning and 35 units at night from a one-time dose of 70 units. He will discuss this with his primary care physician. He is aware not to resume his full Lantus dose and metformin until tomorrow. Objective - Vital Signs Vital signs: Vital Signs Temp 99.4 F 11/27/17 07:07 Pulse 103 H 11/27/17 07:07 Resp 18 11/27/17 07:07 BP 158/77 11/27/17 07:07 Pulse Ox 93 L 11/27/17 07:07 Intake & Output 11/26/17 11/27/17 11/27/17 18:59 06:59 18:59 Intake Total 2607 2800 Output Total 500 Balance 2107 2800 Weight 141.443 kg Intake: IV 2607 Intake, IV Titration 1600 Amount Lactated Ringers 1,000 ml 1600 @ 100 mls/hr IV .Q10H [place] Rx#:[id number] Oral 240 Other 960 Output: Urine 100 Estimated Blood Loss 400 Other: # Voids 3 - Exam General: non toxic, no distress, appears at stated age Derm: warm, dry Head: atraumatic, normocephalic, symmetric Eyes: EOMI, no lid lag, anicteric sclera Mouth: no lip lesion, mucus membranes moist Cardiovascular: S1S2 reg, no murmur, positive posterior tibial pulse bilateral, Lungs: CTA bilateral, no rhonchi, no rales , no accessory muscle use Abdominal: soft, nontender to palpation, no guarding, no appreciable organomegaly Ext: no gross muscle atrophy, no edema, no contractures Neuro: CN II-XI grossly intact, no focal neuro deficits Psych: Alert, oriented, falls asleep unless physically stimulated - Labs CBC & Chem 7: 11/27/17 06:49 11/27/17 06:49 Labs: Abnormal Lab Results - Last 24 Hours (Table) 11/26/17 11/26/17 11/26/17 Range/Units 11:30 17:25 19:45 RBC (4.30-5.90) m/uL Hgb (13.0-17.5) gm/dL Hct (39.0-53.0) % RDW (11.5-15.5) % POC Glucose (mg/dL) 149 H 117 H 163 H (75-99) mg/dL 11/27/17 11/27/17 Range/Units 06:49 06:50 RBC 3.94 L (4.30-5.90) m/uL Hgb 11.0 L (13.0-17.5) gm/dL Hct 33.2 L (39.0-53.0) % RDW 15.6 H (11.5-15.5) % POC Glucose (mg/dL) 165 H (75-99) mg/dL Assessment and Plan Assessment: Left total knee arthroplasty postop day 1 secondary to arthritis -Pain control -DVT prophylaxis per orthopedics -PT/OT -Bowel regiment Diabetes mellitus type 2 with insulin use - Levemir 50 units this morning, can resume his home dose of Lantus 70 units tomorrow and his metformin -Patient to discuss with his primary care physician transitioning to Lantus twice daily injections of 35 units -Sliding-scale insulin -hemoglobin A1c pending -Hold metformin today resume tomorrow Morbid obesity -Structured outpatient weight loss Medically stable for discharge.
[2017-11-27] MEDS ORDERED: MULTIVITAMINS, THERA 1 EACH TAB PO SCH (12:00)
[2017-11-27 12:48] LABS: Hemoglobin A1C 7.7 % (4.0-6.0)
== END 2017-11-27 14:05 | disposition home health service (06) ==
LOC: OR 05:43 → 3SUR 11:13 → OR 11-27 01:30 → 3SUR 11-27 01:30
PROVIDERS: ADMIT Orthopaedic Surgery; ATTEND Orthopaedic Surgery
DX: M17.12 Unilateral primary osteoarthritis, left knee (principal); M21.169 Varus deformity, not elsewhere classified, unspecified knee; E11.9 Type 2 diabetes mellitus without complications; R35.0 Frequency of micturition; F17.200 Nicotine dependence, unspecified, uncomplicated; E66.01 Morbid (severe) obesity due to excess calories; H91.90 Unspecified hearing loss, unspecified ear; Z88.0 Allergy status to penicillin; Z96.651 Presence of right artificial knee joint; Z68.41 Body mass index [BMI] 40.0-44.9, adult; Z71.3 Dietary counseling and surveillance; Z79.4 Long term (current) use of insulin; Z86.718 Personal history of other venous thrombosis and embolism; Z79.82 Long term (current) use of aspirin
CPT/HCPCS: 97161; 80048; 85025; 88300; 83036; 73560; 27447; G0378; C1776; C1713; J2250; J0171; J1170 ×3; J1200; J0690 ×2; J2405; J3010; J1885; J2795; J2370; J2704; J0735

== ENCOUNTER → 2017-12-28 | Outpatient (CLI) | payer BC ==
--- NOTE | 2017-12-28 09:11 | US ---
EXAMINATION TYPE: US renals and bladder DATE OF EXAM: 12/28/2017 COMPARISON: NONE CLINICAL HISTORY: R35.0 frequency of micturation R39.12 weak urinary stream. EXAM MEASUREMENTS: Right Kidney: 13.2 x 5.2 x 5.5 cm Left Kidney: 13.0 x 6.2 x 5.5 cm Right Kidney: measures large Left Kidney: measures large, lobular contour Bladder: wnl Bilateral Jets seen: Yes There is no evidence for hydronephrosis at this point in time. No nephrolithiasis is seen. No christopher s are identified. The urinary bladder is anechoic. Bilateral ureteral jets are seen. IMPRESSION: Prominent renal size although no distinct abnormality is appreciated at this time.
== END | disposition home or self-care (01) ==
LOC: RADUSMAIN 07:17
PROVIDERS: ATTEND Family Medicine
DX: R35.0 Frequency of micturition (principal); R39.12 Poor urinary stream
CPT/HCPCS: 76770

== ENCOUNTER 2018-01-10 09:45 | Day surgery (SDC) | payer BC ==
[~2018-01-10 09:45] MED LIST changes: -ACETAMINOPHEN TAB 500 MG TAB PO ONE; +CLINDAMYCIN 600 MG in DEXTROSE 5% IN WATER 50 ML IVPB ONE; -CLINDAMYCIN 900 MG in DEXTROSE 5% IN WATER 50 ML IVPB ONE; +DEXAMETHASONE SOD PHOSPHATE 4 MG/ML 1 ML VIAL IV ONE; +FAMOTIDINE 20 MG/2 ML VIAL IV ONE; -LACTATED RINGERS 1,000 ML IV SCH; -LIDOCAINE 1% 20 ML VIAL (10MG/ML) FOR IV START INTRADERMA PRN; -MELOXICAM 7.5 MG TAB PO ONE; -TRANEXAMIC ACID 1,000 MG in SODIUM CHLORIDE 0.9% 100 ML IVPB ONE
[2018-01-10 10:30] VITALS: TEMP 98.1
[2018-01-10] MEDS ORDERED: LACTATED RINGERS 1,000 ML IV ONE (10:32)
[2018-01-10 10:33] LABS: Glucose,Whole Blood 139 mg/dL (75-99)
[2018-01-10] MEDS ORDERED: LIDOCAINE 1% 20 ML VIAL (10MG/ML) FOR IV START INTRADERMA ONE (10:33)
[2018-01-10] MEDS ORDERED: HYDROmorphone 0.5 MG/0.5 ML SYRINGE IVP PRN (10:37)
[2018-01-10] MEDS ORDERED: LACTATED RINGERS 1,000 ML IV SCH (10:45)
[2018-01-10] MEDS ORDERED: fentaNYL (PF) 50 MCG/ML 2 ML AMP ONE (12:14)
[2018-01-10] MEDS ORDERED: GLYCOPYRROLATE 0.2 MG/ML 2 ML VIAL ONE (12:14)
[2018-01-10] MEDS ORDERED: PROPOFOL 10 MG/ML 20 ML VIAL IV ONE (12:14)
[2018-01-10] MEDS ORDERED: LIDOCAINE 1% INJ 10MG/ML (20 ML MDV) ONE (12:14)
[2018-01-10] MEDS ORDERED: ROCURONIUM BROMIDE 10 MG/ML 10 ML VIAL IV ONE (12:14)
[2018-01-10] MEDS ORDERED: NEOSTIGMINE 1 MG/ML 10 ML VIAL ONE (12:14)
[2018-01-10] MEDS ORDERED: MIDAZOLAM 2 MG/2 ML VIAL ONE (12:14)
[2018-01-10] MEDS ORDERED: SUCCINYLCHOLINE CHLORIDE VIAL 200 MG/10 ML VIAL IV ONE (12:14)
[2018-01-10 13:19] LABS: Glucose,Whole Blood 188 mg/dL (75-99)
--- NOTE | 2018-01-10 13:20 | P.OP ---
Date of Procedure: 01/10/18 Preoperative Diagnosis: Dysphasia Foreign body midesophagus Postoperative Diagnosis: dysphasia Procedure(s) Performed: Direct microscopic laryngoscopy and biopsy Flexible esophagoscopy Gastroscopy Anesthesia: ANDREEAA Surgeon: Willis Boles Estimated Blood Loss (ml): 0 Pathology: none sent Condition: stable Disposition: PACU Indications for Procedure: This patient had a history of dysphagia and a CAT scan was done demonstrating a tubular foreign body of the midesophagus. As of yesterday he was having persistent dysphasia were fully was getting stuck in his throat and chest. The foreign body that was noted on CAT scan report with the probable etiology to the patient's dysphagia. Esophagoscopy gastroscopy laryngoscopy was recommended for removal of this foreign body and evaluation. Operative Findings: The patient's esophagoscopy did not reveal any foreign body. There is no inflammation the esophagus as a possible location of where the foreign body could've been in the past. The stomach did not show any signs of a foreign body inflammation or irritation. The stomach was visualized all the way to the duodenum NEG maneuver did not even see a hiatal hernia. Patient did have a cystic lesion of the left arytenoid which was biopsied. Description of Procedure: This patient was taken to the operative room and placed in the supine position. A general inhalation anesthetic was administered the patient by mask and subsequently intubated with a cuffed endotracheal tube by the department of anesthesia with a functioning IV line in place. The patient was monitored throughout the entire case by the department of anesthesia. Tooth guard was placed and a Jako laryngoscope was placed into the patient's mouth with care to avoid any trauma to the lips teeth gums and tongue. Ulcers open tongue was depressed and the entire oropharynx and hypopharynx was evaluated including the base of tongue, vallecula, epiglottis, true and false vocal cords, postcricoid space, piriform sinuses etc. there was a small cyst seen on the left arytenoid which was biopsied there is no signs of any other pathology. The Jako laryngoscope was removed and esophagoscope was inserted into the mouth and then into the right piriform sinus. We visualized the esophagus from the upper esophageal sphincter to the lower esophageal sphincter under direct visualization utilizing a flexible scope pictures were taken. We passed through the esophagus 3 times in looking for this that esophageal foreign body but there is no evidence of any foreign bodies in the esophagus. After we did and esophagoscopy with no evidence of a foreign body we extended our scope into the stomach past the lower esophageal sphincter. A J maneuver was performed there is no evidence of a hiatal hernia. The entire stomach was evaluated there is no signs of any gastric lesions or foreign body. We did evaluate the stomach to the duodenum. We then removed all instrumentation. The patient tolerated this well and follow-up will be in the office in 1 week. Patient is to contact me if any problems arise.
[2018-01-10 13:21] VITALS: RESP 20
[2018-01-10 14:32] VITALS: BP 130/71; PULSE 86
== END 2018-01-10 14:56 | disposition home or self-care (01) ==
LOC: OR 09:45
PROVIDERS: ATTEND Otolaryngology
DX: J38.1 Polyp of vocal cord and larynx (principal); R13.14 Dysphagia, pharyngoesophageal phase; J01.90 Acute sinusitis, unspecified; E11.9 Type 2 diabetes mellitus without complications; F17.200 Nicotine dependence, unspecified, uncomplicated; M19.90 Unspecified osteoarthritis, unspecified site; Z86.718 Personal history of other venous thrombosis and embolism; Z79.899 Other long term (current) drug therapy; Z79.82 Long term (current) use of aspirin; Z79.4 Long term (current) use of insulin; Z88.0 Allergy status to penicillin
CPT/HCPCS: 31536; 43235; 88305; J2250; J0330; J1100; J2710; J2405; J2001; J3010; J2704

== ENCOUNTER → 2018-02-05 | Outpatient (CLI) | payer BC ==
--- NOTE | 2018-02-05 08:39 | FL ---
EXAMINATION TYPE: FL barium swallow DATE OF EXAM: 02/05/2018 CLINICAL HISTORY: History of retained foreign body requiring endoscopic removal in December with also polyp removal at same time presents with pain and nausea and vomiting, heartburn and reflux-like sym ptoms. TECHNIQUE: A double contrast esophagram is performed utilizing air and barium. A total of 33 second s of fluoroscopic time was utilized during procedure. COMPARISON: None FINDINGS: The esophagus shows normal motility and emptying into the stomach. No evidence of hiatal h ernia or stricture noted. No significant gastroesophageal reflux was seen during real time performanc e of this study. A right medial basilar roughly 1 cm nodule was observed during real-time fluoroscopy , follow-up advised. IMPRESSION: No significant abnormality is seen to account for patient's symptoms. A 1 cm right medi al basilar nodule noted during fluoroscopy. Advise follow-up contrast enhanced chest CT to further ev aluate.
== END | disposition home or self-care (01) ==
LOC: RADFLMAIN 07:55
PROVIDERS: ATTEND Otolaryngology
DX: Z09 Encounter for follow-up examination after completed treatment for conditions other than malignant neoplasm (principal); Z87.821 Personal history of retained foreign body fully removed
CPT/HCPCS: 74220

== ENCOUNTER → 2018-04-01 | Outpatient (CLI) | payer BC | END | disposition home or self-care (01) | LOC: LABWHC1 08:40 | PROVIDERS: ATTEND Orthopaedic Surgery Orthopaedic Surgery of the Spine | DX: Z01.812 Encounter for preprocedural laboratory examination (principal) | CPT/HCPCS: 87070 ==

== ENCOUNTER 2018-04-03 05:33 | Inpatient (IN) | payer BC ==
[2018-03-25 10:07] VITALS: BMI 42.3
[~2018-04-03 05:33] MED LIST changes: +BACITRACIN 50,000 UNIT, POLYMYXIN B 500,000 UNIT in SODIUM CHLORIDE 0.9% IRRIGATIO 1,00... IRRIGATION ONE; -CLINDAMYCIN 600 MG in DEXTROSE 5% IN WATER 50 ML IVPB ONE; +DEXAMETHASONE SOD PHOSPHATE 10 MG/ML 1 ML VIAL IV ONE; -DEXAMETHASONE SOD PHOSPHATE 4 MG/ML 1 ML VIAL IV ONE; -FAMOTIDINE 20 MG/2 ML VIAL IV ONE; +HYDROmorphone 0.5 MG/0.5 ML SYRINGE IVP PRN; +LIDOCAINE 1% 20 ML VIAL (10MG/ML) FOR IV START INTRADERMA PRN; +MIDAZOLAM 2 MG/2 ML VIAL IV PRN; +MORPHINE SULFATE 2 MG/ML SYRINGE IV PRN; +SCOPOLAMINE 1.5MG/72HR PATCH TRANSDERM ONE
[2018-04-03] MEDS ORDERED: LIDOCAINE 1% 20 ML VIAL (10MG/ML) FOR IV START INTRADERMA PRN (06:49)
[2018-04-03] MEDS ORDERED: MORPHINE SULFATE 2 MG/ML SYRINGE IV PRN (06:49)
[2018-04-03] MEDS ORDERED: ONDANSETRON 4 MG/2 ML VIAL IVP ONE (06:49)
[2018-04-03] MEDS ORDERED: MIDAZOLAM 2 MG/2 ML VIAL IV PRN (06:49)
[2018-04-03] MEDS ORDERED: SCOPOLAMINE 1.5MG/72HR PATCH TRANSDERM ONE (06:49)
[2018-04-03] MEDS ORDERED: HYDROmorphone 0.5 MG/0.5 ML SYRINGE IVP PRN (06:49)
[2018-04-03] MEDS ORDERED: DEXAMETHASONE SOD PHOSPHATE 10 MG/ML 1 ML VIAL IV ONE (06:49)
[2018-04-03] MEDS: LACTATED RINGERS 1,000 ML IV SCH ×3 (07:17→17:30)
[2018-04-03 07:22] LABS: Glucose,Whole Blood 160 mg/dL (75-99)
[2018-04-03] MEDS ORDERED: HEPARIN SODIUM,PORCINE 10,000 UNIT/ML 1 ML VIAL ONE (08:02)
[2018-04-03] MEDS ORDERED: ROCURONIUM BROMIDE 10 MG/ML 10 ML VIAL IV ONE (08:02)
[2018-04-03] MEDS ORDERED: GLYCOPYRROLATE 0.2 MG/ML 2 ML VIAL ONE (08:02)
[2018-04-03] MEDS ORDERED: MIDAZOLAM 2 MG/2 ML VIAL ONE (08:02)
[2018-04-03] MEDS ORDERED: HYDROmorphone (PF) 1 MG/ML ONE (08:02)
[2018-04-03] MEDS ORDERED: NEOSTIGMINE 1 MG/ML 10 ML VIAL ONE (08:02)
[2018-04-03] MEDS ORDERED: ePHEDrine SULFATE/0.9% NACL/PF 50 MG/5 ML SYRINGE IV ONE (08:02)
[2018-04-03] MEDS ORDERED: fentaNYL (PF) 50 MCG/ML 2 ML AMP ONE (08:02)
[2018-04-03] MEDS ORDERED: PHENYLEPHRINE-0.9% NACL SYG 1 MG/10 ML SYRINGE ONE (08:02)
[2018-04-03] MEDS ORDERED: PROPOFOL 10 MG/ML 20 ML VIAL IV ONE (08:02)
[2018-04-03] MEDS ORDERED: SUCCINYLCHOLINE CHLORIDE VIAL 200 MG/10 ML VIAL IV ONE (08:02)
[2018-04-03] MEDS ORDERED: LACTATED RINGERS 1,000 ML BAG IV ONE (08:02)
[2018-04-03] MEDS ORDERED: GELATIN SPONGE,ABSORB (SMALL) 1 EACH SPONGE TOPICAL ONE (08:46)
[2018-04-03] MEDS ORDERED: THROMBIN (BOVINE) 5,000 UNIT VIAL TOPICAL ONE (08:46)
[2018-04-03] MEDS ORDERED: BUPIVACAINE (PF) 0.5% 30 ML VIAL SQ ONE (08:48)
[2018-04-03] MEDS ORDERED: LACTATED RINGERS 1,000 ML IV ONE ×3 (09:12→13:04)
[2018-04-03 14:13] LABS: Glucose,Whole Blood 193 mg/dL (75-99)
[2018-04-03] MEDS ORDERED: HYDROcodone/APAP 5-325MG 1 EACH TAB PO PRN (14:25)
[2018-04-03] MEDS ORDERED: MAGNESIUM HYDROXIDE 2,400 MG/10 ML CUP PO PRN (14:25)
[2018-04-03] MEDS ORDERED: BENZOCAINE/MENTHOL LOZENG 1 EACH LOZENGE MUCOUS MEM PRN (14:25)
[2018-04-03] MEDS ORDERED: MORPHINE SULFATE 4 MG/ML SYRINGE IVP PRN (14:25)
[2018-04-03] MEDS ORDERED: ONDANSETRON 4 MG/2 ML VIAL IVP PRN (14:25)
--- NOTE | 2018-04-03 14:33 | FL ---
Fluoroscopy HISTORY: Lumbar fusion 5 minutes 20 seconds fluoroscopy time supplied to the referring clinician. 2 intraoperative C-arm im ages document the procedure. See dictated report from orthopedic surgery.
--- NOTE | 2018-04-03 14:37 | XR ---
EXAMINATION TYPE: XR lumbar spine 2 or 3V DATE OF EXAM: 04/03/2018 COMPARISON: NONE HISTORY: Lumbar fusion TECHNIQUE: Intraoperative 2 views the lumbar spine are acquired. FINDINGS: 2 views show posterior interpedicular rods and screws transfixing L2-S1 levels bilaterally. There is metallic disc material L3-L4 level. There are bilateral laminectomy defects and spinous pro cess resection at multiple levels. IMPRESSION: As above.
--- NOTE | 2018-04-03 14:41 | P.OP ---
Date of Procedure: 04/03/18 Preoperative Diagnosis: Degenerative scoliosis Postlaminectomy syndrome degenerative disc disease Recurrent spinal stenosis History of prior laminectomy L2-3 L3 4 L4 5 L5-S1 Low back pain with lower extremity radiculopathy Postoperative Diagnosis: Same Procedure(s) Performed: Minimally invasive decompression and fusion L2-3 and L3 4 L4 5 L5-S1 Posterior spinal facet fusion L2-3 and L3 4 L4 5 L5-S1 Transforaminal interbody fusion L3 4 with placement of interbody cage Revision laminectomy L2-3 L3 4 L4 5 L5-S1 Harvesting of local autogenous bone graft Harvesting of bone marrow aspirate. The pedicle of L3 to supplemental local autogenous bone graft and allograft bone Use of fluoroscopic guidance Anesthesia: GETA Pathology: none sent Condition: stable Disposition: PACU Description of Procedure: DESCRIPTION OF PROCEDURE(S): BRIEF OPERATIVE NOTE Preoperative Diagnosis: Degenerative scoliosis Postlaminectomy syndrome degenerative disc disease Recurrent spinal stenosis History of prior laminectomy L2-3 L3 4 L4 5 L5-S1 Low back pain with lower extremity radiculopathy Postoperative Diagnosis: Same Procedure: Revision Laminectomy and decompression L2-3 L3 4 L4 5 L5-S1 Minimally invasive Posterior lateral decompression and facet fusion L2-3 L3 4 L4 5 L5-S1 Minimally invasive Transforaminal lumbar interbody fusion for a 360 fusion L3 4 Discectomy for decompression L3 4 Placement of interbody graft L3 4 Local autogenous bone grafting Use of Cell Saver Use of bone graft extenders Surgeon: Dr. Borges Brake Adjuster: Chris Lyons is present throughout the entire the case persistence during positioning, dissection, exposure, visualization, and all crucial elements of the case as well as closure. Anesthesia: General anesthesia per Dr. Dr. Lawson Estimated blood loss: Approximately 1100 mL with 450 given back through Cell Saver Complications: None apparent Components implanted: K2M minimally invasive [place] pedicle screw system with 10 screws to the measuring 5.5 the others measuring 6.5 with 2 rods and Screws and a and a Hand expandable cage, we also used a ostio amp sponge and 60 mL of bone fibers allograft Disposition: To recovery room in good stable condition. OPERATIVE INDICATIONS The patient has had long-standing issues in their lower back and lower extremities. He had a history of wide laminectomy decompression many years ago at L2 to S1 for his spinal stenosis. He had done well with that however over the past several years has been having worsening symptoms in his back and lower extremities. He was found to have a significant degenerative change with degenerative scoliosis degenerative disc disease and recurrent foraminal stenosis. He was having postlaminectomy syndrome and breakdown at the multiple levels of his lumbar spine causing his significant symptoms. He is not having any benefit despite conservative treatment and was having worsening of his symptoms and decreased ability to perform regular activities and sleep. The patient has been through conservative treatment. We discussed various treatment options including surgery, and the patient wishes to proceed with surgery We discussed the risk, patient's alternatives and benefits of surgery including but not limited to, risk of bleeding risk of infection, risk of need for further surgery, risk of decreased, loss of motion, muscle function, malunion nonunion, hardware failure, nerve damage, paralysis, heart attack, blindness and . OPERATIVE SUMMARY After discussing all the risks, patient alternatives and benefits at length, the patient elected to proceed with surgical intervention, signed informed consent, and presented for their procedure. The patient was seen and examined in the preoperative holding area and the surgical site was marked. The patient was given antibiotics and brought to the operating room. The patient was sedated and intubated by anesthesia in standard fashion. The patient was positioned on to the operating room table in a prone position on the appropriate frame which was well-padded and well molded. We were careful to pad any bony prominences and pressure points. We were careful to maintain the patient's cervical spine and good neutral alignment and position throughout. The patient was prepped and draped in a normal standard fashion. An appropriate timeout and keystone protocol performed. We were able to proceed with the surgery. The local wound area was infiltrated with local anesthetic. I was able utilize C-arm guidance to establish appropriate position over the pedicles bilaterally at the appropriate levels from L2 to S1. With the appropriate levels confirmed was able to make small stab incisions over the appropriate pedicle sites bilaterally. Utilizing C-arm in his house able to establish a Jamshidi needle over the lateral aspect of the pedicle and advanced the trocar into the pedicle being careful not to breech superiorly inferiorly medially or laterally. Position was confirmed regularly with AP and lateral images on C-arm. I was able to establish the trocar into the pedicle appropriately into the posterior aspect of the vertebral body bilaterally at the appropriate levels at L2-L3 L4-L5 and S1 bilaterally. This was done at each of the pedicle positions and each of the vertebrae. At L3 on the right was able to withdraw bone marrow aspirate approximately 20 mL to supplemental local autogenous bone graft and allograft bone. I was able place the guidewire into the trocar and into the vertebral body appropriately under C-arm guidance. Dissection was taken down over the wire to the appropriate starting position for the screw placed. The appropriate length screw was chosen, threaded over the guidewire and screwed appropriately into the pedicle and vertebral body under C-arm guidance in excellent alignment and position with good bony purchase. This is done at each of the screw sites at the appropriate levels at L2-3 4 and 5 and S1. With the screws intact I extended the incision to connect the screw hole sites on the most symptomatic side on the right. I dissected down to establish access over the pars and lamina to the base of the spinous process. I was able to expose the facet joint. At the L3 4 level alone, The capsule the facet was taken down and showed some facet arthrosis at the joint. I was able to use a combination of curettes and Kerrison rongeurs and a high-speed drill to take down the facet joint and do a facetectomy. Partial laminectomy was also performed. I was able get excellent foraminal decompression and central decompression with undermining across midline to perform a laminectomy centrally and contralaterally. As able get good central decompression. There was significant scar tissue at the area which increase the level of the difficulty of the decompression. The ligamentum flavum was taken down to further decompress centrally and at bilateral neural foramen. I was able to expose the disc space and visualize the traversing nerve root. Note was made of some disc protrusion at the level causing further compression of the nerve root. I was able to establish a annulotomy at the appropriate level protecting soft tissue and neural structures. Note was made of some severe disc desiccation at the disc. I performed a complete discectomy with accommodation of curettes and rasps and scrapers. I was able get good endplate preparation at the disc space. I sized for the appropriate size interbody spacer protecting the soft tissue and neural structures. The wound was copiously irrigated and suctioned dry. There is no evidence of any dural tear or leak. I was able to pack the disc space with local autogenous bone graft as well as a small amount of bone graft which was also placed into the interbody cage itself. Protecting the soft tissue structures and neural structures I was able place the interbody cage in good alignment and good position with good fit and fill at the interbody space. His issues was confirmed with C-arm guidance. Good hemostasis maintained. There is no evidence of any dural tear or leak. The wound was irrigated and suctioned dry. At the L2-3 L4 5 and L5-S1 levels I was able to dissect down to the facet joints and to take down portions of the lamina to open space for laminectomy bilaterally, I also performed partial facetectomy and drilled out the facet joint to prepare for appropriate facet fusion. I was able place the local otitis bone graft as well as ostial and sponge and bone fibers into the facet joint to supplement the fusion. This was done at L2-3 and L4 5 and L5-S1 With the hardware intact, intraoperative C-arm imaging was again taken which showed good alignment and position of the hardware at the appropriate levels from L2 to S1. We were then able to measure, contour and place the rods and appropriate hardware bilaterally. I was able to place capcrews, tighten them down, and torque them with the torque screwdriver appropriately. With this intact I was able to place the local autogenous bone graft with additional bone graft enhancer as necessary into the posterior lateral gutters and the the decorticated facet joints. The remainder of the bone graft was placed over the facet joint on the contralateral side after taking down the facet joint capsule. With the bone graft intact, a stable construct, and good decompression at the appropriate levels, we were able to proceed with closure. Good hemostasis was maintained. There is no evidence of dural tear or leak. The fascia was closed for a watertight closure. he subcuticular tissue was closed with absorbable suture. The wound was cleaned and dried and dressed with the appropriate dressing. The drapes were broken down. The patient was gently rolled back onto their hospital bed being careful to maintain their cervical spine and good neutral alignment and position. They were woken up by anesthesia, extubated, and brought to the recovery room in good stable condition. The patient will be admitted to the hospital for appropriate postoperative care , medical management and monitoring. We will continue to follow them closely about the postoperative course.
[2018-04-03] MEDS ORDERED: diphenhydrAMINE 50 MG/ML 1 ML VIAL IVP ONE (14:50)
[2018-04-03] MEDS ORDERED: LABETALOL SYRINGE 5 MG/ML IVP ONE (15:18)
[2018-04-03] MEDS: MEPERIDINE 50 MG/ML SYRINGE IVP ONE ×2 (15:40→15:45)
[2018-04-03] MEDS ORDERED: SODIUM CHLORIDE 0.9% 1,000 ML IV ONE (16:09)
[2018-04-03 16:14] LABS: Glucose,Whole Blood 201 mg/dL (75-99)
[2018-04-03] MEDS ORDERED: INSULIN ASPART 100 UNIT/ML 1 ML 10 ML VIAL SQ ONE (16:17)
[2018-04-03] MEDS: INSULIN ASPART 100 UNIT/ML 1 ML 10 ML VIAL SQ SCH ×2 (17:31→21:18)
[2018-04-03] MEDS: MORPHINE SULFATE 4 MG/ML SYRINGE IVP PRN ×2 (17:42→21:07)
[2018-04-03] MEDS: INSULIN DETEMIR 100 UNIT/ML 10 ML VIAL SQ SCH (17:52)
[2018-04-03] MEDS: metFORMIN 500 MG TAB PO SCH (18:50)
[2018-04-03] MEDS: HYDROcodone/APAP 5-325MG 1 EACH TAB PO PRN (19:52)
[2018-04-03] MEDS: SODIUM CHLORIDE 0.9% 1,000 ML IV SCH (20:28)
[2018-04-03] MEDS: CIPROFLOXACIN HCL 500 MG TAB PO SCH (21:12)
[2018-04-03 21:19] LABS: Glucose,Whole Blood 149 mg/dL (75-99)
--- NOTE | 2018-04-03 22:59 | CONS ---
CONSULTATION DATE OF CONSULTATION: April 03, 2018. REASON FOR CONSULTATION: Medical management requested by Dr. Borges. CONSULTATION: This is a 62-year-old patient of Dr. Neal who has been having lumbar pain for quite some time, uncontrolled, getting worse that includes multiple levels including from L2- S1. The patient is also having referred pain down to the legs interfering with his activity, not getting better, worse with activity and somewhat better with rest, overall progressively getting worse. Because patient failed treatment, patient decided to go down for surgery for the same. Post procedure has some pain lying in bed. No nausea, vomiting. No chest pain. The patient's chronic stable medical conditions include diabetes, arthritis in other joints, insomnia. Denies any cardiac history. REVIEW OF SYSTEMS: CONSTITUTIONAL: None. HEENT none. Respiratory none. Cardiovascular none. Gastrointestinal: None. Genitourinary has a Pruett catheter. DERMATOLOGICAL, HEMATOLOGIC, LYMPHATIC: none. Psychiatry none. Neurological trouble sleeping. Musculoskeletal: Arthritic pain in lower back and other joints. PAST MEDICAL HISTORY: Diabetes mellitus type 2, DVT in grade III, hepatitis as a child. PAST SURGICAL HISTORY: Appendectomy, back surgery, arthroscopy of the knee, bilateral thumb surgery, diskectomy, lumbar spine. SOCIAL HISTORY: The patient smokes cigars very rarely. Denies alcohol. Lives by himself. FAMILY HISTORY: Lung cancer. HOME MEDICATIONS: 1. Glucophage 1000 mg p.o. b.i.d. 2. Lantus 70 units in the evening. 3. NovoLog per scale. 4. Cipro for recent UTI. 5. Tylenol Extra Strength. ALLERGY: PENICILLIN. PHYSICAL EXAMINATION: Temperature 97.1 pulse 98, respiratory 18, blood pressure 138/71, pulse ox 98% on 3 L. GENERAL APPEARANCE: Well built, BMI 42.4, lying in bed, not in distress. Eyes pupils equal, conjunctivae normal. HEENT external appearance of nose and ears normal. Oral cavity normal. Neck JVD unable to assess. Mass not palpable. Respiratory effort normal. Lungs slightly distant breath sounds. Cardiovascular: First and second sounds normal. No edema. Abdomen distended, soft. Liver and spleen not palpable. Lymphatics: No lymph nodes palpable in the neck and axilla. PSYCHIATRY: Alert and oriented x3. Mood and affect normal. Neurological: Pupils equal. Cranial nerves grossly intact. Sensation grossly preserved in the legs. INVESTIGATIONS: Accu-Cheks noted. ASSESSMENT: 1. Lumbar surgery. 2. Chronic insomnia. 3. Primary osteoarthritis in other joints. 4. Diabetes mellitus type 2, chronically on insulin. 5. Morbid obesity BMI 42.4. PLAN: Home medications are resumed. Accu-Cheks will be followed. The patient has got Venodyne boots for DVT prophylaxis. The patient should see a dietitian for weight loss measures. Will give patient melatonin for insomnia. The patient should follow up with Dr. Neal after discharge. Thank you Dr. Borges. MMBAILEYL / IJN: [id number] /
[2018-04-04] MEDS: MELATONIN 5 MG TABLET PO SCH ×2 (00:31→20:42)
[2018-04-04] MEDS: MORPHINE SULFATE 4 MG/ML SYRINGE IVP PRN ×4 (01:14→15:56)
[2018-04-04] MEDS: HYDROcodone/APAP 5-325MG 1 EACH TAB PO PRN ×5 (03:18→20:42)
[2018-04-04] MEDS: SODIUM CHLORIDE 0.9% 1,000 ML IV SCH ×2 (06:12→17:48)
[2018-04-04 07:15] LABS: Glucose,Whole Blood 163 mg/dL (75-99)
[2018-04-04] MEDS: LACTATED RINGERS 1,000 ML IV SCH ×2 (07:36→12:15)
[2018-04-04] MEDS: INSULIN ASPART 100 UNIT/ML 1 ML 10 ML VIAL SQ SCH ×4 (07:37→20:42)
[2018-04-04 07:45] LABS: Anion Gap 11 mmol/L; Blood Urea Nitrogen 11 mg/dL (9-20); Calcium 8.3 mg/dL (8.4-10.2); Carbon Dioxide 27 mmol/L (22-30); Chloride 96 mmol/L (98-107); Glucose 167 mg/dL (74-99); Potassium 4.4 mmol/L (3.5-5.1); Sodium 134 mmol/L (137-145)
[2018-04-04 08:05] LABS: Basophils # (A) 0.1 k/uL (0-0.2); Basophils % (A) 0 %; Eosinophils % (A) 0 %; HCT 38.5 % (39.0-53.0); HGB 12.8 gm/dL (13.0-17.5); Lymphocytes # (A) 1.7 k/uL (1.0-4.8); Lymphocytes % (A) 14 %; MCH 27.4 pg (25.0-35.0); MCHC 33.3 g/dL (31.0-37.0); MCV 82.1 fL (80.0-100.0); Mean Platelet Volume 6.2; Monocytes # (A) 0.6 k/uL (0-1.0); Monocytes % (A) 5 %; Neutrophils # (A) 9.9 k/uL (1.3-7.7); Neutrophils % (A) 80 %; Platelet Count 276 k/uL (150-450); RBC 4.69 m/uL (4.30-5.90); RDW 14.4 % (11.5-15.5); WBC 12.4 k/uL (3.8-10.6)
--- NOTE | 2018-04-04 08:10 | P.PN ---
Progress Note - Text Progress Note Date: 04/04/18 Postoperative day #1 Patient is seen and examined today at bedside. The patient has some pain around the surgical site as expected. Pain is being controlled with medication. He has not yet been out of bed but we'll try today with therapy. Physical Exam Afebrile with stable vital signs Abdomen is soft nontender. Chest has good excursion deep and space expiration The incision site is clean dry and intact this morning though he did have significant drainage overnight and had to have the dressing reinforced which appears appropriate. No erythema there is no purulence. Extremities have not had neurologic change from prior to surgery. He has sustained dorsal flexion plantarflexion and EHL intact Calves and thighs were soft nontender without evidence of DVT. Assessment/Plan Postoperative day #1 status post revision decompression with fusion L2-3 L3 4 L4 5 and L5-S1 for his degenerative scoliosis with recurrent stenosis and degenerative disc disease low back pain and lower extremity Patient is progressing as expected from the surgery. We will try to get him out of bed this morning to start to mobilize though I think this will be difficult. He lives alone and may need some halfway before returning directly home after the significant of a fusion. We will have case management see him as well. We will continue to increase the patient's mobilization with therapy. We will continue pain control with oral or IV medications. We'll continue to follow patient closely.
[2018-04-04] MEDS: DIAZEPAM 5 MG TAB PO PRN (10:01)
[2018-04-04] MEDS: CIPROFLOXACIN HCL 500 MG TAB PO SCH ×2 (10:01→20:42)
[2018-04-04] MEDS: metFORMIN 500 MG TAB PO SCH ×2 (10:02→17:44)
[2018-04-04] MEDS: SENNOSIDES-DOCUSATE SODIUM 1 EACH TAB PO SCH (10:04)
[2018-04-04 11:41] LABS: Glucose,Whole Blood 198 mg/dL (75-99)
[2018-04-04] MEDS: INSULIN DETEMIR 100 UNIT/ML 10 ML VIAL SQ SCH (16:51)
[2018-04-04 17:11] LABS: Glucose,Whole Blood 180 mg/dL (75-99)
[2018-04-04 20:20] LABS: Glucose,Whole Blood 203 mg/dL (75-99)
--- NOTE | 2018-04-05 00:26 | PN ---
PROGRESS NOTE DATE OF SERVICE: 04/04/18 PRESENTING COMPLAINT: Lumbar surgery. INTERVAL HISTORY: I saw this patient this morning. Patient status post lumbar surgery. Did tolerate his breakfast. No nausea, vomiting. Pain is slightly better controlled. No radiation down the leg. The patient has been out of bed. Pruett catheter was removed. Did make urine. REVIEW OF SYSTEMS: Done for constitutional, cardiovascular, GI, pulmonary, musculoskeletal and relevant findings above. CURRENT MEDICATIONS: Reviewed. EXAMINATION: Temperature 99, pulse 99, respiratory 16, blood pressure 104/66, pulse ox 94% on room air. General appearance: Lying in bed. Comfortable. Eyes pupils equal. Conjunctivae normal. HEENT: External appearance of nose and ears normal. Oral cavity normal. Neck JVD not raised. Mass not palpable. Respiratory effort normal. Lungs distant breath sounds. Cardiovascular. HEART: Sounds 1st and 2nd sounds. No edema. ABDOMEN: Distended, soft. Liver and spleen not palpable. Psychiatry: Alert and oriented x3. Mood and affect normal. INVESTIGATIONS: Accu-Cheks are noted. ASSESSMENT: 1. Lumbar surgery. 2. Chronic insomnia. 3. Primary osteoarthritis in multiple joints. 4. Diabetes mellitus type 2, chronically on insulin, uncontrolled with hyperglycemia. 5. Morbid obesity BMI 42.4. PLAN: Care was discussed with the patient. Continue current medication and treatment plan. Follow. MMODL / IJN: [id number] /
[2018-04-05] MEDS: HYDROcodone/APAP 5-325MG 1 EACH TAB PO PRN ×2 (00:41→05:26)
[2018-04-05 06:51] LABS: Glucose,Whole Blood 178 mg/dL (75-99)
[2018-04-05] MEDS: DIAZEPAM 5 MG TAB PO PRN (07:12)
[2018-04-05] MEDS: INSULIN ASPART 100 UNIT/ML 1 ML 10 ML VIAL SQ SCH ×4 (08:07→21:20)
[2018-04-05] MEDS: LACTATED RINGERS 1,000 ML IV SCH (08:07)
[2018-04-05] MEDS: SENNOSIDES-DOCUSATE SODIUM 1 EACH TAB PO SCH (08:25)
[2018-04-05] MEDS: metFORMIN 500 MG TAB PO SCH ×2 (08:25→16:58)
[2018-04-05] MEDS: CIPROFLOXACIN HCL 500 MG TAB PO SCH ×2 (08:25→21:20)
[2018-04-05] MEDS: SODIUM CHLORIDE 0.9% 1,000 ML IV SCH (08:26)
[2018-04-05] MEDS ORDERED: HYDROcodone/APAP 7.5-325MG 1 EACH TAB PO PRN (08:34)
--- NOTE | 2018-04-05 08:34 | P.PN ---
Progress Note - Text Progress Note Date: 04/05/18 Orthopedic Spine Patient is a pleasant 62-year-old male who is seen and examined at the bedside following posterior lateral decompression and fusion performed Sunday. Patient has been progressing quite slowly postsurgically. He states he has only been able to stand the bedside twice with assistance of physical therapy. Nursing states he was a 4 person assist to stand yesterday. He has not been able to sit in a bedside chair. He does not appear significantly motivated as he does not feel he can do any of the activities that have been requested for him to do including rolling over in bed, sitting on the bedside, or sitting in a bedside chair. He needs significant help to do any of these activities. He continues to have significant low back pain. He states he has not had much of an appetite postsurgically but is not spearing sitting any abdominal pain. He states he does have some difficulty with hypoxia at home with saturation in the mid 80s. Patient was sleeping when I went in to examine the patient and monitoring showed saturation of approximately 85% to 87%. Upon waking the patient in discussion with the patient, his saturation level increased to 94%. Nursing states he did receive oxygen twice yesterday. Other vital signs are stable. Currently does not complain of nausea, vomiting, fever, or chills. Patient is eating and voiding freely without difficulty. Physical Exam Lumbar Fusion: Status post surgical day number 2 Patient is awake, alert, and oriented 3 Vital signs stable Good chest excursion with deep inspiration and expiration when prompted to do so Abdomen soft nontender Dorsiflexion, plantarflexion, and extensor hallucis longus positive sustained bilaterally No signs or symptoms of DVT; no calf pain; pneumatic cuffs not currently intact bilateral lower extremities Dressing is intact with some dried blood; dressing was previously reinforced; no erythema, purulence, or signs of infection Neurovascularly intact bilaterally lower extremities Assessment: Minimally invasive posterior lateral decompression and fusion L2-3, L3-4, L4-5, and L5-S1 Transforaminal lumbar interbody fusion L3-4 Low back pain Plan: 1. Ambulate as tolerated; work with Physical Therapy to increase mobilization; we discussed the importance of working to increase his mobility and ambulation and that he must provide effort to do so in order to help improve his recovery postsurgically; he is encouraged to use his incentive spirometer 2. Continue pain control with IV and oral medications; we will plan to increase [place] to [place] 7.5 mg/325 mg 1-2 tabs every 4 hours as needed for pain and will plan to discontinue [place] 5 mg/325 mg 3. Dressing will be removed and changed to Telfa and Tegaderm while patient is able to sit at the bedside while working with therapy 4. Medical management can continue to manage patient for patient's other medical issues type 2 diabetes mellitus 5. We will continue to follow the patient closely; at the time of discharge, patient discharged to rehabilitation facility. Patient has been progressing significantly slowly and continues to require IV pain medication as well as oral medications. All week and we will plan to try to increase his mobility and ambulation while decreasing his narcotic intake in anticipation for discharge to rehab this coming 04/08/2008 6. Patient can follow-up with Chris Huitron PA-C or Dr. Aroldo Borges at [facility] in 2-3 weeks following discharge
[2018-04-05] MEDS: HYDROcodone/APAP 7.5-325MG 1 EACH TAB PO PRN ×3 (09:48→21:31)
[2018-04-05] MEDS ORDERED: HYDROmorphone 2 MG TAB PO PRN (10:41)
[2018-04-05] MEDS ORDERED: HYDROmorphone 4 MG TABLET PO PRN (10:41)
[2018-04-05] MEDS ORDERED: RX INFO: IV CONTRAST WAS GIVEN 1 EACH MISC MISCELLANE PRN (11:18)
[2018-04-05 11:53] LABS: Glucose,Whole Blood 150 mg/dL (75-99)
[2018-04-05 12:17] LABS: Creatine Kinase 1044 U/L (55-170)
[2018-04-05 12:29] LABS: Creatine Kinase MB 0.8 ng/mL (0.0-2.4); Troponin I <0.012 ng/mL (0.000-0.034)
--- NOTE | 2018-04-05 12:48 | CT ---
EXAMINATION TYPE: CT angio chest DATE OF EXAM: 04/05/2018 COMPARISON: NONE HISTORY: Patient complains of chest pain. CT DLP: 588.4 mGycm Automated exposure control for dose reduction was used. CONTRAST: CTA scan of the thorax is performed with IV Contrast, patient injected with 100 mL of Isovue 370, pul monary embolism protocol. MIP images are created and reviewed. 3D reconstructed images are created on an independent workstation and reviewed. FINDINGS: LUNGS: The lungs are remarkable for calcified granuloma in the right middle lobe, there is no concern ing parenchymal mass or nodule identified. Some atelectatic changes are present at the lung bases. T here is no pleural effusion or pneumothorax seen. The tracheobronchial tree is patent. AORTA: Root of the aorta measures approximately 4.5 cm.. MEDIASTINUM: There is borderline enhancement of the pulmonary artery and its branches, there is no CT evidence for pulmonary embolism. There are no greater than 1 cm hilar or mediastinal lymph nodes. Calcified right hilar nodes are present. No pericardial effusion is seen. Pulmonary artery is dilated . There are coronary artery calcifications. OTHER: No additional significant abnormality is seen. IMPRESSION: ENHANCEMENT OF THE PULMONARY ARTERIES IS NOT OPTIMAL HOWEVER NO PULMONARY EMBOLISM IS EVIDENT. Aortic aneurysm. Correlate for pulmonary artery hypertension. Old granulomatous disease.
[2018-04-05] MEDS: INSULIN DETEMIR 100 UNIT/ML 10 ML VIAL SQ SCH (16:59)
[2018-04-05 17:05] LABS: Glucose,Whole Blood 206 mg/dL (75-99)
[2018-04-05 21:00] LABS: Glucose,Whole Blood 179 mg/dL (75-99)
[2018-04-05] MEDS: MELATONIN 5 MG TABLET PO SCH (21:20)
[2018-04-06] MEDS: HYDROcodone/APAP 7.5-325MG 1 EACH TAB PO PRN ×4 (00:55→15:39)
[2018-04-06] MEDS: SODIUM CHLORIDE 0.9% 1,000 ML IV SCH ×3 (06:47→21:56)
[2018-04-06] MEDS: LACTATED RINGERS 1,000 ML IV SCH ×2 (06:47→22:00)
[2018-04-06 07:15] LABS: Glucose,Whole Blood 183 mg/dL (75-99)
[2018-04-06] MEDS: INSULIN ASPART 100 UNIT/ML 1 ML 10 ML VIAL SQ SCH ×4 (07:58→21:59)
[2018-04-06] MEDS: CIPROFLOXACIN HCL 500 MG TAB PO SCH ×2 (07:59→21:59)
[2018-04-06] MEDS: metFORMIN 500 MG TAB PO SCH ×2 (07:59→17:39)
[2018-04-06] MEDS: SENNOSIDES-DOCUSATE SODIUM 1 EACH TAB PO SCH (08:00)
--- NOTE | 2018-04-06 10:46 | P.PN ---
Subjective Progress Note Date: 04/06/18 Principal diagnosis: S/P L2-S1 Fusion Patient is a pleasant 62-year-old male who is seen and examined at the bedside following posterior lateral decompression and fusion performed Sunday, 2017. He has pain at the surgical site in the lumbar spine as expected. He denies any new radicular complaints including numbness or tingling. He denies abdominal pain, calf pain, fever, chills, chest pain or shortness of breath. Objective - Vital Signs Vital signs: Vital Signs Temp 99.3 F 04/06/18 07:47 Pulse 99 04/06/18 07:47 Resp 18 04/06/18 07:51 BP 160/81 04/06/18 07:47 Pulse Ox 92 L 04/06/18 07:47 Intake & Output 04/05/18 04/06/18 04/06/18 18:59 06:59 18:59 Intake Total 600 1200 Output Total 250 375 Balance 350 825 Intake: Intake, IV Titration 600 Amount Sodium Chloride 0.9% 1, 600 000 ml @ 75 mls/hr IV . [id number] [facility] Rx#:[id number] Oral 1200 Output: Urine 250 375 Uretheral (Pruett) 375 Other: Voiding Method Urinal Urinal # Voids 3 2 1 - Exam Patient is awake, alert, and oriented 3 Abdomen soft nontender Dorsiflexion, plantarflexion, and extensor hallucis longus positive sustained bilaterally, sensation to light touch intact throughout the lateral lower extremities. Calves are soft and nontender. 2+ dorsalis pedis pulse and less than 2 second cap refill is present distally. Dressing is intact with some dried blood; dressing was previously reinforced; no erythema, purulence, or signs of infection Neurovascularly intact bilaterally lower extremities - Constitutional General appearance: Present: no acute distress - Psychiatric Psychiatric: Present: A&O x's 3, appropriate affect, intact judgment & insight - Labs CBC & Chem 7: 04/04/18 06:41 04/04/18 06:41 Labs: Abnormal Lab Results - Last 24 Hours (Table) 04/05/18 04/05/18 04/05/18 Range/Units 11:39 11:51 17:00 POC Glucose (mg/dL) 150 H 206 H (75-99) mg/dL Total Creatine Kinase 1044 H (55-170) U/L 04/05/18 04/06/18 Range/Units 20:58 07:13 POC Glucose (mg/dL) 179 H 183 H (75-99) mg/dL Total Creatine Kinase (55-170) U/L Assessment and Plan (1) Degenerative scoliosis in adult patient Narrative/Plan: He'll continue with routine postop orthopedic protocol including pain management , wound care, physical therapy, DVT prophylaxis and medical management. Expect that he will transfer to rehab on Sunday. Current Visit: Yes Status: Acute Code(s): M41.50 - OTHER SECONDARY SCOLIOSIS , SITE UNSPECIFIED SNOMED Code(s): 850652839 Time with Patient: Less than 30
--- NOTE | 2018-04-06 10:56 | PN ---
PROGRESS NOTE DATE OF SERVICE: 04/05/2018 PRESENTING COMPLAINT: Chest pain. INTERVAL HISTORY: I saw this patient this afternoon. Patient is status post lumbar surgery. The patient is complaining of sharp chest pain in the middle of the chest, worse with a deep breath. Also complaining of a sore throat. There was no radiation. No dizziness. No lightheadedness. No perspiration. REVIEW OF SYSTEMS: Review of systems done for constitutional, cardiovascular, GI, pulmonary; relevant findings as above. CURRENT MEDICATIONS: Current medications were reviewed. PHYSICAL EXAMINATION: On examination, temperature 98.5, pulse 79, respiration 14, blood pressure 127/66, pulse ox 94% on room air. GENERAL APPEARANCE: Lying in bed, comfortable. EYES: Pupils equal. Conjunctivae normal. HENT: External appearance of the nose and ears normal. Oral cavity normal. NECK: JVD not raised. Mass not palpable. RESPIRATORY: Effort normal. Lungs are clear. CARDIOVASCULAR: First and second sounds normal. No edema. ABDOMEN: Soft, nontender. Liver and spleen not palpable. PSYCHIATRY: Alert and oriented x3. Mood and affect normal. INVESTIGATIONS: Accu-Cheks are noted. Troponin less than 0.012. EKG reported as normal sinus rhythm. Chest CTA negative for PE. ASSESSMENT: 1. Lumbar surgery. 2. Chronic insomnia. 3. Primary osteoarthritis multiple joints. 4. Diabetes mellitus type 2, chronically on insulin, uncontrolled with hypoglycemia. 5. Morbid obesity, body mass index 42.4. 6. Sharp chest pain, need to rule out a cardiac cause and also pulmonary embolism. PLAN: I did order a chest CTA that came back to be negative. EKG was unremarkable. Serial troponins were in place. The patient was reassured. Continue treatment plan. MMODL / IJN: [id number] /
[2018-04-06 12:20] LABS: Glucose,Whole Blood 214 mg/dL (75-99)
[2018-04-06] MEDS: INSULIN DETEMIR 100 UNIT/ML 10 ML VIAL SQ SCH (16:03)
[2018-04-06 17:33] LABS: Glucose,Whole Blood 230 mg/dL (75-99)
[2018-04-06 20:40] LABS: Glucose,Whole Blood 202 mg/dL (75-99)
--- NOTE | 2018-04-06 20:58 | PN ---
PROGRESS NOTE DATE OF SERVICE: April 06, 2018. PRESENT COMPLAINT: Chest pain. INTERVAL HISTORY: Patient is status post lumbar surgery, doing well today. Tolerating a diet. Pain is controlled. Has been out of bed. No new issues. Feels well. REVIEW OF SYSTEMS: Done for constitutional, cardiovascular, GI, pulmonary, musculoskeletal and relevant findings as above. CURRENT MEDICATIONS: Reviewed. EXAMINATION: Temp 97.7, pulse 101, respiratory rate 19, blood pressure 116/79, pulse ox 93%. GENERAL: Lying in bed comfortable. EYES: Pupils equal. Conjunctivae are normal. HEENT: External appearance of nose and ears normal. Oral cavity normal. Neck JVD not raised. Mass not palpable. Respiratory effort: Lungs are clear. Cardiovascular 1st and 2nd sounds normal. No edema. ABDOMEN: Soft, nontender. Liver and spleen not palpable. Psychiatry: Alert and oriented x3. Mood and affect normal. INVESTIGATIONS: Accu-Cheks are noted. ASSESSMENT: 1. Status post lumbar surgery. 2. Chronic insomnia. 3. Primary osteoarthritis multiple joints. 4. Diabetes mellitus type 2, chronically on insulin. 5. Morbid obesity BMI 42.4. PLAN: Patient doing well. Continue current medication and treatment plan. Care was discussed the patient. MMODL / IJN: [id number] /
[2018-04-06] MEDS: MELATONIN 5 MG TABLET PO SCH (21:56)
[2018-04-07] MEDS: HYDROcodone/APAP 7.5-325MG 1 EACH TAB PO PRN ×4 (06:31→21:14)
[2018-04-07 07:12] LABS: Glucose,Whole Blood 202 mg/dL (75-99)
[2018-04-07 07:45] LABS: Basophils % (A) 0 %; Eosinophils # (A) 0.1 k/uL (0-0.7); Eosinophils % (A) 1 %; HCT 33.5 % (39.0-53.0); Lymphocytes # (A) 1.5 k/uL (1.0-4.8); Lymphocytes % (A) 11 %; MCH 27.2 pg (25.0-35.0); MCHC 32.7 g/dL (31.0-37.0); Mean Platelet Volume 6.6; Monocytes # (A) 0.5 k/uL (0-1.0); Monocytes % (A) 4 %; Neutrophils # (A) 11.6 k/uL (1.3-7.7); Neutrophils % (A) 84 %; Platelet Count 348 k/uL (150-450); RBC 4.04 m/uL (4.30-5.90); RDW 14.5 % (11.5-15.5); WBC 13.8 k/uL (3.8-10.6)
[2018-04-07 08:11] LABS: Anion Gap 14 mmol/L; Blood Urea Nitrogen 17 mg/dL (9-20); Calcium 8.5 mg/dL (8.4-10.2); Carbon Dioxide 26 mmol/L (22-30); Chloride 93 mmol/L (98-107); Glucose 187 mg/dL (74-99); Sodium 133 mmol/L (137-145)
[2018-04-07] MEDS: SODIUM CHLORIDE 0.9% 1,000 ML IV SCH (08:11)
[2018-04-07] MEDS: INSULIN ASPART 100 UNIT/ML 1 ML 10 ML VIAL SQ SCH ×4 (08:13→21:15)
[2018-04-07] MEDS: metFORMIN 500 MG TAB PO SCH ×2 (08:14→17:08)
[2018-04-07] MEDS: SENNOSIDES-DOCUSATE SODIUM 1 EACH TAB PO SCH (08:15)
--- NOTE | 2018-04-07 09:53 | P.CRDCN ---
History of Present Illness Consult date: 04/07/18 History of present illness: This 62-year-old gentleman who has had back surgery for disc problems. We're asked to see the patient because of his complaints of arm pain and jaw pain. He claims the both shoulders are hurting and he cannot hardly lift his shoulders. He is also complaining of jaw pain and is having difficulty opening his mouth and eating. There is severe tenderness in the temporomandibular joints. His pains are clearly muscular skeletal in nature. He did complain of some chest pain, basically go which was in the middle of the sternal area. Apparently the pain was increasing on deep breathing. Currently patient doesn' t have any pain. There is no tenderness. His pains are clearly noncardiac in nature. One troponin values within normal limits. Computed tomography scan was negative for pulmonary emboli. He may have some multi-joint inflammation. May consider rheumatology consult. From Cardec standpoint, I'm going to get an EKG and echocardiogram. No history of previous ischemic heart disease. History of diabetes, no hypertension. His cholesterol status is not known. Nonsmoker Review of Systems As per the chart Past Medical History Past Medical History: Diabetes Mellitus, Deep Vein Thrombosis (DVT), Osteoarthritis (OA) Additional Past Medical History / Comment(s): BLOOD CLOT IN RIGHT LEG A CHILD. , STATES JAUNDICE (HEPATITIS) CHILD. pt currently has kidney infection taking cipro to follow up with dr christensen prior to procedure History of Any Multi-Drug Resistant Organisms: None Reported Past Surgical History: Appendectomy, Back Surgery, Orthopedic Surgery Additional Past Surgical History / Comment(s): ARTHROSCOPY KNEE-TENDON FROM LEFT KNEE TO RIGHT KNEE., JOSSELYN THUMB SURGERY,JOSSELYN.KNEE ARTHROPLASTY. DISCECTOMY LUMBAR SPINE. Past Anesthesia/Blood Transfusion Reactions: No Reported Reaction Additional Past Anesthesia/Blood Transfusion Reaction / Comment(s): WAKES UP DURING SURGERY. Past Psychological History: No Psychological Hx Reported Smoking Status: Current some day smoker Past Alcohol Use History: None Reported Additional Past Alcohol Use History / Comment(s): SMOKES CIGARS RARELY. Past Drug Use History: None Reported - Past Family History Father History Unknown: Yes Family Medical History: Cancer Additional Family Medical History / Comment(s): LUNG CANCER Mother Family Medical History: Blood Disorder, CVA/TIA Medications and Allergies Home Medications Medication Instructions Recorded Confirmed Type Insulin Glargine [Lantus] 70 unit SQ 1600 07/05/17 04/03/18 History metFORMIN HCL [Glucophage] 1,000 mg PO BID 07/05/17 04/03/18 History Insulin Aspart [NovoLOG See Protocol SQ ACHS 11/15/17 04/03/18 History (formulary)] Acetaminophen [Tylenol Extra 1,000 mg PO Q6H #60 tablet 01/10/18 04/03/18 Rx Strength] Ciprofloxacin HCl [Cipro] 500 mg PO Q12HR 03/25/18 04/03/18 History Allergies Allergy/AdvReac Type Severity Reaction Status Date / Time Penicillins Allergy Unknown Unknown Verified 04/03/18 16:00 Childhood Physical Exam Vitals: Vital Signs Temp Pulse Resp BP BP Pulse Ox 04/07/18 06:50 18 04/07/18 06:49 98.2 F 99 18 120/68 95 04/07/18 06:19 97.3 F L 102 H 16 130/75 93 L 04/06/18 21:06 108 H 18 140/61 95 04/06/18 21:00 108 H 18 137/73 93 L 04/06/18 20:54 97.0 F L 118 H 20 173/72 84 L 04/06/18 20:48 118 H 04/06/18 20:02 98.4 F 103 H 16 154/83 93 L 04/06/18 15:00 97.7 F 101 H 19 116/79 93 L Intake and Output 04/06/18 04/07/18 04/07/18 22:59 06:59 14:59 Intake Total 250 Balance 250 Intake: Oral 250 Other: Voiding Method Toilet # Voids 2 1 GENERAL EXAM: Patient is alert and oriented and doesn't appear to be in any acute distress HEENT: Normocephalic. Normal reaction of pupils, equal size, normal range of extraocular motion. No erythema or exudates in the throat. NECK: No masses, no nuchal rigidity. CHEST: No chest wall deformity. LUNGS: Equal air entry with no crackles or wheeze. HEART: S1 and S2 normal with no audible mumurs or gallops. Regular rhythm, femorals equal on both sides.. ABDOMEN: No hepatosplenomegaly, normal bowel sounds, no guarding or rigidity. SKIN: No rashes CENTRAL NERVOUS SYSTEM: No focal deficits. EXTREMITIES: No cyanosis, clubbing or edema. Results 04/07/18 07:01 04/07/18 07:01 CBC 04/07/18 Range/Units 07:01 WBC 13.8 H (3.8-10.6) k/uL RBC 4.04 L (4.30-5.90) m/uL Hgb 11.0 L (13.0-17.5) gm/dL Hct 33.5 L (39.0-53.0) % Plt Count 348 (150-450) k/uL Comprehensive Metabolic Panel 04/07/18 Range/Units 07:01 Sodium 133 L (137-145) mmol/L Potassium 4.0 (3.5-5.1) mmol/L Chloride 93 L (98-107) mmol/L Carbon Dioxide 26 (22-30) mmol/L BUN 17 (9-20) mg/dL Creatinine 0.64 L (0.66-1.25) mg/dL Glucose 187 H (74-99) mg/dL Calcium 8.5 (8.4-10.2) mg/dL Current Medications Generic Name Dose Route Start Last Admin Trade Name Freq PRN Reason Stop Dose Admin Hydrocodone Bitart/Acetaminophen 1 each 04/05/18 08:34 Marianna 7.5-325 PO Q4H PRN Pain Scale 4-6 Hydrocodone Bitart/Acetaminophen 2 each 04/05/18 08:38 04/07/18 06:31 Marianna 7.5-325 PO 2 each Q4H PRN Administration Pain Scale 7-10 Benzocaine/Menthol 1 each 04/03/18 14:25 Cepacol Lozenge MUCOUS MEM Q4HR PRN Sore Throat Diazepam 5 mg 04/03/18 14:25 04/05/18 07:12 Valium PO 5 mg QID PRN Administration Anxiety Hydromorphone HCl 2 mg 04/05/18 10:41 Dilaudid PO Q4HR PRN Pain SCALE 1-5 Hydromorphone HCl 4 mg 04/05/18 10:41 Dilaudid PO Q4HR PRN Pain SCALE 6-10 Lactated Ringer's 1,000 mls @ 20 mls/hr 04/03/18 06:49 04/06/18 22:00 Lactated Ringers IV Not Given .Q24H [place] Sodium Chloride 1,000 mls @ 75 mls/hr 04/03/18 14:30 04/07/18 08:11 Saline 0.9% IV Not Given .[id number] [place] Insulin Aspart 0 unit 04/03/18 17:30 04/07/18 08:13 Novolog SQ 2 unit ACHS [place] Administration Protocol Insulin Detemir 70 unit 04/03/18 16:00 04/06/18 16:03 Levemir SQ 70 unit 1600 [place] Administration Lidocaine HCl 0.1 ml 04/02/18 15:42 04/03/18 07:18 .Xylocaine 1% Inj (10mg/Ml) For Iv Start INTRADERMA 0.1 ml PER PROTOCOL PRN Administration IV Start Lidocaine HCl 0.1 ml 04/03/18 06:49 .Xylocaine 1% Inj (10mg/Ml) For Iv Start INTRADERMA PER PROTOCOL PRN IV Start Magnesium Hydroxide 2,400 mg 04/03/18 14:25 Milk Of Magnesia PO DAILY PRN Constipation Melatonin 5 mg 04/03/18 22:00 04/06/18 21:56 Melatonin PO Not Given HS [facility] Metformin HCl 1,000 mg 04/03/18 17:30 04/07/18 08:14 Glucophage PO 1,000 mg BID-W/MEALS [place] Administration Miscellaneous Information 1 each 04/05/18 11:18 Rx Info: Iv Contrast Was Given MISCELLANE 04/07/18 11:18 DAILY PRN Per Protocol Ondansetron HCl 4 mg 04/03/18 14:25 Zofran IVP Q12HR PRN Nausea Senna/Docusate Sodium 1 each 04/04/18 09:00 04/07/18 08:15 Senokot-S PO 1 each DAILY [place] Administration Intake and Output 04/06/18 04/07/18 04/07/18 22:59 06:59 14:59 Intake Total 250 Balance 250 Intake: Oral 250 Other: Voiding Method Toilet # Voids 2 1 04/07/18 07:01 04/07/18 07:01 EKG Interpretations (text) Not available Assessment and Plan (1) Shoulder pain Current Visit: Yes Status: Acute Code(s): M25.519 - PAIN IN UNSPECIFIED SHOULDER SNOMED Code(s): 57528015 (2) Osteoarthritis of left knee Current Visit: No Status: Acute Code(s): M17.12 - UNILATERAL PRIMARY OSTEOARTHRITIS, LEFT KNEE SNOMED Code(s): 868046895486934 (3) Osteoarthritis of right knee Current Visit: No Status: Acute Code(s): M17.11 - UNILATERAL PRIMARY OSTEOARTHRITIS, RIGHT KNEE SNOMED Code(s): 445103962163614 (4) Status post total left knee replacement Current Visit: No Status: Acute Code(s): Z96.652 - PRESENCE OF LEFT ARTIFICIAL KNEE JOINT SNOMED Code(s): 8601852386662 (5) Chest pain Current Visit: Yes Status: Acute Code(s): R07.9 - CHEST PAIN, UNSPECIFIED SNOMED Code(s): 39175170 Plan: Patient has pain in the multiple joints including shoulders, and mandibular joints. Most probably had some teeth syndrome. Currently is not having any chest pain. I'm going to get an EKG and also echocardiogram. May consider rheumatology consult. Thank you for letting us participate in the care of this patient
[2018-04-07 11:19] LABS: Glucose,Whole Blood 200 mg/dL (75-99)
--- NOTE | 2018-04-07 12:26 | XR ---
EXAMINATION TYPE: XR cervical spine comp DATE OF EXAM: 04/07/2018 COMPARISON: NONE HISTORY: 62-year-old male with neck pain and stiffness TECHNIQUE: 6 views FINDINGS: The predental space widening or prevertebral soft tissue swelling. Moderate to advanced disc/endplate change throughout the cervical spine corresponding hypertrophic facet and uncovertebral joint arthro reyes. Only the cervical spine down to C6 level is visualized and shows normal alignment. C6-C7 and b elow is obscured by the patient's shoulders even on the swimmer's view. The oblique views suggest mod erate to severe bilateral neuroforaminal stenoses throughout, worse on the right. Limited odontoid vi ew shows no gross abnormality. IMPRESSION: 1. Advanced spondylotic change throughout. 2. The cervical spine only down to C6 is seen on the lateral and swimmer's view. Alignment at C6-C7 a nd below cannot be assessed on this exam. 3. The oblique views suggest bilateral moderate to severe neuroforaminal stenoses, right greater than left.
--- NOTE | 2018-04-07 13:54 | P.PN ---
Subjective Progress Note Date: 04/07/18 Principal diagnosis: S/P L2-S1 Fusion Patient is a pleasant 62-year-old male who is seen and examined at the bedside this morning. He is s/p posterior lateral decompression and fusion performed 04/03/2018. He has pain at the surgical site in the lumbar spine as expected. He has also noted some neck stiffness and general weakness of his upper extremities. It is unknown if new or chronic. He denies constant numbness or tingling in his arms. He has no tripping or stumbling. He denies any new radicular complaints including numbness or tingling in his legs. He denies abdominal pain, calf pain, fever, chills, chest pain or shortness of breath. Objective - Vital Signs Vital signs: Vital Signs Temp 98.2 F 04/07/18 06:49 Pulse 99 04/07/18 06:49 Resp 18 04/07/18 06:50 BP 120/68 04/07/18 06:49 Pulse Ox 95 04/07/18 06:49 Intake & Output 04/06/18 04/07/18 04/07/18 18:59 06:59 18:59 Intake Total 250 Balance 250 Intake: Oral 250 Other: Voiding Method Urinal Toilet # Voids 1 2 1 - Exam Inspection of surgical wound shows dressing is intact and was previously reinforced; no erythema, purulence, or signs of infection, no active bleeding or drainage. Lower extremities show L2-S1 myotomes and dermatomes intact Upper extremities show motor and sensation grossly intact C5-T1. Negative Lombardo's sign Abdomen soft nontender Calves are soft and nontender. 2+ dorsalis pedis pulse and less than 2 second cap refill is present distally. - Constitutional General appearance: Present: no acute distress - Psychiatric Psychiatric: Present: A&O x's 3, appropriate affect, intact judgment & insight - Labs CBC & Chem 7: 04/07/18 07:01 04/07/18 07:01 Labs: Abnormal Lab Results - Last 24 Hours (Table) 04/06/18 04/06/18 04/07/18 Range/Units 17:27 20:39 07:01 WBC 13.8 H (3.8-10.6) k/uL RBC 4.04 L (4.30-5.90) m/uL Hgb 11.0 L (13.0-17.5) gm/dL Hct 33.5 L (39.0-53.0) % Neutrophils # 11.6 H (1.3-7.7) k/uL Sodium (137-145) mmol/L Chloride (98-107) mmol/L Creatinine (0.66-1.25) mg/dL Glucose (74-99) mg/dL POC Glucose (mg/dL) 230 H 202 H (75-99) mg/dL 04/07/18 04/07/18 04/07/18 Range/Units 07:01 07:10 11:16 WBC (3.8-10.6) k/uL RBC (4.30-5.90) m/uL Hgb (13.0-17.5) gm/dL Hct (39.0-53.0) % Neutrophils # (1.3-7.7) k/uL Sodium 133 L (137-145) mmol/L Chloride 93 L (98-107) mmol/L Creatinine 0.64 L (0.66-1.25) mg/dL Glucose 187 H (74-99) mg/dL POC Glucose (mg/dL) 202 H 200 H (75-99) mg/dL Assessment and Plan (1) Degenerative scoliosis in adult patient Narrative/Plan: He'll continue with routine postop orthopedic protocol including pain management , wound care, physical therapy, DVT prophylaxis and medical management. Will also order cervical xrays. Expect that he will transfer to rehab on Sunday. Current Visit: Yes Status: Acute Priority: Medium Code(s): M41.50 - OTHER SECONDARY SCOLIOSIS, SITE UNSPECIFIED SNOMED Code(s): 720390341 Time with Patient: Less than 30
[2018-04-07 17:05] LABS: Glucose,Whole Blood 156 mg/dL (75-99)
[2018-04-07] MEDS: INSULIN DETEMIR 100 UNIT/ML 10 ML VIAL SQ SCH (17:08)
[2018-04-07 20:14] LABS: Glucose,Whole Blood 239 mg/dL (75-99)
[2018-04-07] MEDS: MELATONIN 5 MG TABLET PO SCH (21:13)
--- NOTE | 2018-04-07 23:57 | PN ---
PROGRESS NOTE DATE OF SERVICE: April 07, 2018. PRESENTING COMPLAINT: Weakness in the arms. INTERVAL HISTORY: Patient is status post lumbar surgery otherwise was doing well. The patient complains that he has been having weakness in the right arm for a few days in both the arms for the last two days. The patient also has a bit of a stiff neck. Has been going on for quite a while. Also has not had a bowel movement. REVIEW OF SYSTEMS: Done for constitutional, cardiovascular, GI, pulmonary, musculoskeletal and relevant findings as above. CURRENT MEDICATIONS: Reviewed. EXAMINATION: Temperature 97.8, pulse 93, respiratory 18, blood pressure 130/80, pulse ox 94%. General sitting up on a chair, comfortable. EYES: Pupils are equal. Conjunctivae normal. HEENT: External appearance of nose and ears normal. Oral cavity normal. Neck JVD not raised. Mass not palpable. Respiratory effort normal. Lungs are clear. Cardiovascular: First and second sounds normal. No edema. Abdomen soft, nontender, Liver and spleen not palpable. Psychiatry alert, oriented x3. Mood and affect normal. Musculoskeletal: The patient not able to lift both the arms and worship director is somewhat too weak, though patient reflexes are right upper extremity are equivocal, not hyporeflexic. INVESTIGATIONS: White count 13.8, potassium 4, BUN 17, creatinine 0.64. Accu-Cheks are noted. ASSESSMENT: 1. Status post lumbar surgery. 2. Chronic insomnia. 3. Primary hospital multiple joints. 4. Status mellitus type 2, chronically on insulin. 5. Morbid obesity BMI 42.4. 6. Moderate to severe bilateral neuroforaminal stenosis throughout the cervical spine may be causing some degree of radiculopathy. PLAN: Care was discussed with [facility] to discuss this with Dr. Borges. Some of these changes are definitely going to be chronic bladder Dr. Borges will make a final determination of the same. MMODL / IJN: [id number] /
[2018-04-08] MEDS: SODIUM CHLORIDE 0.9% 1,000 ML IV SCH ×2 (02:32→11:02)
[2018-04-08] MEDS: LACTATED RINGERS 1,000 ML IV SCH (05:41)
[2018-04-08 06:50] VITALS: BP 135/81; PULSE 96; RESP 17; TEMP 98.3
[2018-04-08 06:52] LABS: Glucose,Whole Blood 133 mg/dL (75-99)
[2018-04-08] MEDS: INSULIN ASPART 100 UNIT/ML 1 ML 10 ML VIAL SQ SCH ×2 (06:55→11:59)
[2018-04-08] MEDS: HYDROcodone/APAP 7.5-325MG 1 EACH TAB PO PRN ×2 (06:58→11:03)
[2018-04-08] MEDS: metFORMIN 500 MG TAB PO SCH (06:58)
[2018-04-08] MEDS: SENNOSIDES-DOCUSATE SODIUM 1 EACH TAB PO SCH (06:59)
--- NOTE | 2018-04-08 08:43 | P.DS ---
Providers Date of admission: 04/03/18 05:33 Expected date of discharge: 04/08/18 Attending physician: Jeannie Borges Consults: 04/03/18 14:25 Consult Physician Routine Consulting Provider: Ryne Herrera Consult Reason/Comments: Medical management Do you want consulting provider notified?: Yes 04/07/18 09:15 Consult Physician Routine Consulting Provider: Gui Barraza Consult Reason/Comments: Jaw pain Do you want consulting provider notified?: Already Contacted Primary care physician: Kvng Neal - Discharge Diagnosis(es) (1) Postlaminectomy syndrome of lumbar region Current Visit: Yes Status: Acute (2) Lumbar degenerative disc disease Current Visit: Yes Status: Acute (3) Lumbar stenosis Current Visit: Yes Status: Acute (4) Low back pain radiating down leg Current Visit: Yes Status: Acute (5) Degenerative disc disease, cervical Current Visit: Yes Status: Acute (6) Degenerative scoliosis in adult patient Current Visit: Yes Status: Acute Priority: Medium (7) Diabetes Current Visit: Yes Status: Acute (8) Morbid obesity Current Visit: Yes Status: Acute Hospital Course: This is a pleasant 62-year-old male who presented with degenerative scoliosis, postlaminectomy syndrome, lumbosacral degenerative disc disease, recurrent lumbar spinal stenosis, low back pain with lower extremity radiculopathy, and history of prior laminectomy at L2-3, L3-4, L4-5, and L5-S1 who failed outpatient conservative therapy. He was admitted for minimally invasive posterior lateral decompression and fusion at L2-S1 with transforaminal lumbar interbody fusion at L3-4. Patient has been progressing slowly postsurgically. He has had significant improvement over the weekend. He states he doesn't remember Sunday and knowa he had significant difficulty with trying to move. He was a 4 person assist. He has been able to sit at the bedside without significant difficulty. He is no longer receiving IV pain medications. He continues to take oral Dallas regularly for pain control. He is not currently complaining of lower extremity radiculopathy symptoms. He has had a bowel movement. He is eating and voiding without difficulty. Over the weekend he did have some increased difficulty with jaw pain and upper extremity pain. He is currently being seen by cardiology. Cardiology did not find any significant findings and troponin level was within normal limits. They are planning for an echocardiogram today to rule out a cardiac cause. He is not currently complaining of any chest pain or upper extremity pain. Patient states he does have some pain at the TMJs bilaterally. He denies injury. He is not currently complaining of cervical pain. He states he has had some difficulty with lifting shoulders above his head and is unsure of exactly when it started but feels it may have started in the hospital. X-rays of the cervical spine were taken yesterday which do show significant degenerative changes in the cervical spine without evidence of acute fracture. He has not had any injuries since admission to the hospital. Condition on day of discharge stable. Patient will be discharged to a rehabilitation facility. Patient was cleared preoperatively for surgery by Dr. Neal. Patient currently denies any nausea, vomiting, fever, or chills. Patient is eating and voiding freely without difficulty. Incision sites remained clean, dry, and intact. Patient does not require dressing at this time. He may shower without a dressing over his incision sites. Patient should refrain from driving until at least after their first follow-up appointment in the office. Patient should avoid excessive bending, lifting, and twisting; no lifting greater than 10 pounds. Patient will be planned to be discharged to a rehabilitation facility today pending clearance by cardiology. We'll plan for medicine to perform the med rec at discharge. At discharge patient will be given prescriptions for Dallas 7.5 mg/325 mg 1-2 tabs every 6 hours as needed for pain, dispense #90 and Flexeril 10 mg 1 tab every 8 hours as needed for muscle spasm, dispense #90. We will continue with further treatment and evaluation of his cervical spine in the outpatient setting as needed. Physical Exam on day of discharge: Patient is awake, alert, and oriented 3 Vital signs stable Good chest excursion with deep inspiration and expiration Abdomen soft nontender Extensor hallucis longus, plantarflexion, and dorsiflexion positive sustained bilateral lower extremities Adequate range of motion of the cervical spine with adequate flexion, extension , and bilateral rotation without significant exacerbation of pain throughout range of motion Active range of motion in the bilateral upper extremities without significant difficulty Some difficulty with lifting the bilateral arms above the head Galina sign bilaterally Incisions are clean, dry, and intact; no erythema, purulence, or signs of infection Dressing is removed during physical examination No significant pain with palpation over the incision sites Some evidence of skin irritation due to adhesive tape above the incision sites Procedures: Minimally invasive posterior lateral decompression and fusion at L2-S1 with transforaminal lumbar interbody fusion at L3-4. Patient Condition at Discharge: Stable Plan - Discharge Summary Discharge Rx Participant: Yes New Discharge Prescriptions: New Cyclobenzaprine [Flexeril] 10 mg PO TID PRN #90 tab PRN Reason: Muscle Spasm HYDROcodone/APAP 7.5-325MG [Dallas 7.5-325] 1 - 2 each PO Q6HR PRN #90 tab PRN Reason: Pain No Action metFORMIN HCL [Glucophage] 1,000 mg PO BID Insulin Glargine [Lantus] 70 unit SQ 1600 Insulin Aspart [NovoLOG (formulary)] See Protocol SQ ACHS Acetaminophen [Tylenol Extra Strength] 1,000 mg PO Q6H #60 tablet Ciprofloxacin HCl [Cipro] 500 mg PO Q12HR Discharge Medication List Insulin Glargine [Lantus] 70 unit SQ 1600 07/05/17 [History] metFORMIN HCL [Glucophage] 1,000 mg PO BID 07/05/17 [History] Insulin Aspart [NovoLOG (formulary)] See Protocol SQ ACHS 11/15/17 [History] Acetaminophen [Tylenol Extra Strength] 1,000 mg PO Q6H #60 tablet 01/10/18 [Rx] Ciprofloxacin HCl [Cipro] 500 mg PO Q12HR 03/25/18 [History] Cyclobenzaprine [Flexeril] 10 mg PO TID PRN #90 tab 04/08/18 [Rx] HYDROcodone/APAP 7.5-325MG [D[place] 7.5-325] 1 - 2 each PO Q6HR PRN #90 tab [Rx] Follow up Appointment(s)/Referral(s): Chris Huitron, KANA [PHYSICIAN REDUCING SYSTEM OPERATOR] - 04/19/18 2:30 pm (Patient may follow-up with Chris Huitron PA-C or Dr. Aroldo Borges at [facility] in 2-3 weeks following discharge. ) Activity/Diet/Wound Care/Special Instructions: 1. Patient may shower without a dressing over the incision sites 2. Patient should refrain from driving until at least after their first follow- up appointment in the office. 3. Patient should avoid excessive bending, twisting, and lifting; no lifting greater than 10 pounds 4. Take medications as prescribed 5. Do not soak in tub Discharge Disposition: TRANSFER TO SNF/ECF
[2018-04-08 11:20] LABS: Glucose,Whole Blood 187 mg/dL (75-99)
--- NOTE | 2018-04-08 11:54 | PN ---
PROGRESS NOTE DATE OF SERVICE: April 08, 2018. PRESENTING COMPLAINT: Lumbar surgery. INTERVAL HISTORY: Patient status post lumbar surgery. Had a bowel movement yesterday. Looking forward to going to the rehab. Tolerating a diet. Tolerating a diet better. The patient is being worked up by surgery for possibly cervical spine radiculopathy. REVIEW OF SYSTEMS: Done for constitutional, cardiovascular, GI, pulmonary, musculoskeletal; relevant findings as above. CURRENT MEDICATIONS: Reviewed. EXAMINATION: Temperature 98.3, pulse 96, respiration 17, blood pressure 135/81, pulse ox 96% on room air. General appearance: Sitting up on a chair, cheerful. Eyes: Pupils equal, conjunctivae normal. HEENT external appearance of nose and ears normal. Oral cavity normal. Neck JVD not raised. Mass not palpable. Respiratory effort normal. Lungs are clear. Cardiovascular 1st and second sounds normal. No edema. ABDOMEN: Soft, nontender. Liver and spleen not palpable. Psychiatry: Alert and oriented times three. Mood and affect normal. 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 INVESTIGATIONS: Accu-Cheks are noted. ASSESSMENT: 1. Status post lumbar surgery. 2. Chronic insomnia. 3. Primary osteoarthritis of multiple joints. 4. Diabetes mellitus type 2, chronically on insulin. 5. Morbid obesity BMI 42.4. 6. Moderate to severe bilateral neuroforaminal stenosis throughout the cervical spine may be causing some degree radiculopathy. PLAN: Patient is stable. Continue current medication and treatment plan. Continue to follow with Dr. Borges. MMODL / IJN: [id number] /
--- NOTE | 2018-04-08 13:17 | ECHOF ---
Referral Reason:Chest pain and cardiomyopathy MEASUREMENTS -------- HEIGHT: 182.9 cm WEIGHT: 149.7 kg BP: 135/81 IVSd: 1.1 cm (0.6 - 1.1) LVIDd: 3.8 cm (3.9 - 5.3) LVPWd: 1.2 cm (0.6 - 1.1) IVSs: 1.5 cm LVIDs: 2.6 cm LVPWs: 1.9 cm Ao Diam: 4.0 cm (2.0 - 3.7) AV Cusp: 2.2 cm (1.5 - 2.6) LA Diam: 2.8 cm (2.7 - 3.8) MV EXCURSION: 25.683 mm (> 18.000) MV EF SLOPE: 124 mm/s (70 - 150) EPSS: 0.7 cm MV E Minh: 0.76 m/s MV DecT: 201 ms MV A Minh: 0.65 m/s MV E/A Ratio: 1.16 RAP: 5.00 mmHg RVSP: 10.09 mmHg FINDINGS -------- Undetermined rhythm. This was a technically difficult study with suboptimal views. The left ventricular size is normal. There is borderline concentric left ventricular hypertrophy. Overall left ventricular systolic function is normal with, an EF between 55 - 60 %. The right ventricle is normal in size and function. The left atrium is normal in size. The right atrium is normal in size. Lumason used The aortic valve is trileaflet and appears structurally normal. There is trace mitral regurgitation. Trace tricuspid regurgitation present. The right ventricular systolic pressure, as measured by Dopp ler, is 10.09mmHg. Pulmonic valve appears structurally normal. The aortic root is mildy dilated measuring 4.0 cm. The pericardium is normal. CONCLUSIONS -------- 1. Undetermined rhythm. 2. This was a technically difficult study with suboptimal views. 3. The left ventricular size is normal. 4. There is borderline concentric left ventricular hypertrophy. 5. Overall left ventricular systolic function is normal with, an EF between 55 - 60 %. 6. The right ventricle is normal in size and function. 7. The left atrium is normal in size. 8. The right atrium is normal in size. 9. Lumason used 10. The aortic valve is trileaflet and appears structurally normal. 11. There is trace mitral regurgitation. 12. Trace tricuspid regurgitation present. 13. The right ventricular systolic pressure, as measured by Doppler, is 10.09mmHg. 14. Pulmonic valve appears structurally normal. 15. The aortic root is mildy dilated measuring 4.0 cm 16. The pericardium is normal. TEST EQUIPMENT MECHANIC: Berenice Soria RDCS
== END 2018-04-08 13:30 | DRG 454 ==
LOC: 2ORMAIN 05:33 → 3SUR 14:56
PROVIDERS: ADMIT Orthopaedic Surgery Orthopaedic Surgery of the Spine; ATTEND Orthopaedic Surgery Orthopaedic Surgery of the Spine
PROC: 0ST20ZZ Resection of Lumbar Vertebral Disc, Open Approach (ICD-10-PCS; principal; 2018-04-03 08:00)
PROC: 07DS3ZZ Extraction of Vertebral Bone Marrow, Percutaneous Approach (ICD-10-PCS; principal; 2018-04-03 08:00)
PROC: 0SG00AJ Fusion of Lumbar Vertebral Joint with Interbody Fusion Device, Posterior Approach, Anterior Column, Open Approach (ICD-10-PCS; principal; 2018-04-03 08:00)
PROC: 0SG1071 Fusion of 2 or more Lumbar Vertebral Joints with Autologous Tissue Substitute, Posterior Approach, Posterior Column, Open Approach (ICD-10-PCS; principal; 2018-04-03 08:00)
PROC: 0SG3071 Fusion of Lumbosacral Joint with Autologous Tissue Substitute, Posterior Approach, Posterior Column, Open Approach (ICD-10-PCS; principal; 2018-04-03 08:00)
PROC: 0ST40ZZ Resection of Lumbosacral Disc, Open Approach (ICD-10-PCS; principal; 2018-04-03 08:00)
DX: M41.86 Other forms of scoliosis, lumbar region (principal); Z68.41 Body mass index [BMI] 40.0-44.9, adult; M51.17 Intervertebral disc disorders with radiculopathy, lumbosacral region; Z79.84 Long term (current) use of oral hypoglycemic drugs; Z79.4 Long term (current) use of insulin; Z79.899 Other long term (current) drug therapy; Z88.0 Allergy status to penicillin; E11.65 Type 2 diabetes mellitus with hyperglycemia; E66.01 Morbid (severe) obesity due to excess calories; F17.200 Nicotine dependence, unspecified, uncomplicated; F51.04 Psychophysiologic insomnia; M43.6 Torticollis; M48.061 Spinal stenosis, lumbar region without neurogenic claudication; M17.0 Bilateral primary osteoarthritis of knee; Z80.1 Family history of malignant neoplasm of trachea, bronchus and lung; Z60.2 Problems related to living alone; M47.22 Other spondylosis with radiculopathy, cervical region; Z86.718 Personal history of other venous thrombosis and embolism; Z96.653 Presence of artificial knee joint, bilateral; R68.84 Jaw pain
CPT/HCPCS: 36415; 71275; 72050; 72100; 80048; 82550; 82553; 84484; 85025; 86850; 86891; 86900; 86901; 93005; 93306; 94760

== ENCOUNTER 2019-09-07 19:47 | Emergency (ER) | payer BC ==
[2019-09-07 19:56] VITALS: TEMP 97.9
[2019-09-07] MEDS ORDERED: KETOROLAC 30 MG/ML 1 ML VIAL IM STA (20:16)
--- NOTE | 2019-09-07 20:20 | ED ---
Extremity Problem HPI - General Chief complaint: Extremity Problem,Nontraumatic Stated complaint: Knee pain Time Seen by Provider: 09/07/19 19:50 Source: patient Mode of arrival: ambulatory Limitations: no limitations - History of Present Illness Initial comments: Patient is 64-year-old male with history of bilateral knee arthroplasty is presenting to emergency Department with chief complaint of left knee pain. Patient reports developed swelling and pain in his left knee over the last several days with gradual increase in severity. Patient reports that he is unable to fully flex and fully extend the knee due to pain and swelling. Patient reports severe pain. Patient denies any skin discoloration. Patient denies any previous history of a Cain's cyst or any trauma to the region. Patient denies any fever or chills. Patient reports taking [id number] analgesics minimal improvement. - Related Data Home Medications Medication Instructions Recorded Confirmed INSULIN ASPART (NovoLOG) [NovoLOG See Protocol SQ ACHS 11/15/17 09/07/19 (formulary)] Insulin Glargine,Hum.rec.anlog 70 unit SQ DAILY 09/07/19 09/07/19 [Lantus Solostar] metFORMIN HCL [metFORMIN HCL ER 1,000 mg PO BID 09/07/19 09/07/19 Osmotic] Allergies Allergy/AdvReac Type Severity Reaction Status Date / Time Penicillins Allergy Unknown Unknown Verified 09/07/19 20:25 Childhood Review of Systems ROS Statement: Those systems with pertinent positive or pertinent negative responses have been documented in the HPI. ROS Other: All systems not noted in ROS Statement are negative. Past Medical History Past Medical History: Diabetes Mellitus, Deep Vein Thrombosis (DVT), Osteoarthritis (OA) Additional Past Medical History / Comment(s): BLOOD CLOT IN RIGHT LEG A CHILD. , STATES JAUNDICE (HEPATITIS) CHILD. pt currently has kidney infection taking cipro to follow up with dr christensen prior to procedure History of Any Multi-Drug Resistant Organisms: None Reported Past Surgical History: Appendectomy, Back Surgery, Orthopedic Surgery Additional Past Surgical History / Comment(s): ARTHROSCOPY KNEE-TENDON FROM LEFT KNEE TO RIGHT KNEE., JOSSELYN THUMB SURGERY,JOSSELYN.KNEE ARTHROPLASTY. DISCECTOMY LUMBAR SPINE. Past Anesthesia/Blood Transfusion Reactions: No Reported Reaction Additional Past Anesthesia/Blood Transfusion Reaction / Comment(s): WAKES UP DURING SURGERY. Past Psychological History: No Psychological Hx Reported Smoking Status: Current some day smoker Past Alcohol Use History: None Reported Past Drug Use History: None Reported - Past Family History Father History Unknown: Yes Family Medical History: Cancer Additional Family Medical History / Comment(s): LUNG CANCER Mother Family Medical History: Blood Disorder, CVA/TIA General Exam Limitations: no limitations General appearance: alert, in no apparent distress, obese Head exam: Present: atraumatic, normocephalic, normal inspection Eye exam: Present: normal appearance Pupils: Present: normal accommodation ENT exam: Present: normal exam, mucous membranes moist, normal external ear exam Neck exam: Present: normal inspection, full ROM Respiratory exam: Present: normal lung sounds bilaterally Cardiovascular Exam: Present: regular rate, normal rhythm, normal heart sounds Extremities exam: Present: tenderness (Tenderness with palpation on the medial and posterior aspect of the left knee), normal capillary refill, joint swelling, other (+2 dorsalis pedis and posterior tibialis in the left lower extremity). Absent: normal inspection (Swelling in the left knee. No discoloration or erythema. No signs of trauma.), full ROM (Limited range of motion with full flexion and extension) Back exam: Present: normal inspection, full ROM Neurological exam: Present: alert, oriented X3 Psychiatric exam: Present: normal affect, normal mood Skin exam: Present: warm, intact, normal color Course Vital Signs 09/07/19 09/07/19 19:54 21:26 Temperature 97.9 F Pulse Rate 93 78 Respiratory 16 18 Rate Blood Pressure 132/83 129/78 O2 Sat by Pulse 95 97 Oximetry Medical Decision Making - Medical Decision Making Patient is a 64-year-old male with history of bilateral knee arthroplasties presenting to the emergency department with a chief complaint of swelling. Physical examination it is only indicative of a swollen left knee without any signs of trauma. There is no erythema, skin discoloration or temperature changes compared to the other leg. I have low suspicion for a septic joint at this time. X-rays is indicative of a mild to moderate joint effusion. Patient reports that he has had the knee drained multiple times due to effusion since his arthroplasty. Patient advised to follow-up with his beef specialist. Strict return parameters were thoroughly discussed with patient was understanding and agreeable. Patient vised alternate between Tylenol and ibuprofen for pain control. Patient advised to apply ice compress to minimize symptoms. Case discussed physician. Disposition Clinical Impression: Knee effusion, left Disposition: HOME SELF-CARE Condition: Stable Instructions (If sedation given, give patient instructions): Swollen Knee Joint (ED) Additional Instructions: Please follow up with your beef specialist. Please return to emergency department if symptoms worsen. Alternate between Tylenol and ibuprofen for pain control. Apply ice compress denies symptoms. Is patient prescribed a controlled substance at d/c from ED?: No Referrals: Kvng Christensen DO [Primary Care Provider] - 1-2 days Time of Disposition: 21:10
--- NOTE | 2019-09-07 20:36 | XR ---
EXAMINATION TYPE: XR knee complete LT DATE OF EXAM: 09/07/2019 COMPARISON: NONE HISTORY: Pain and swelling TECHNIQUE: 3 views FINDINGS: There is a knee joint effusion. There is left knee prosthesis. I see no fracture nor disloc ation. IMPRESSION: Moderate knee joint effusion. No fracture seen.
[2019-09-07] MEDS ORDERED: ACET/COD 300 MG/30 MG STARTER PACK 6 TAB BTL PO STA (21:10)
[2019-09-07 21:27] VITALS: BP 129/78; PULSE 78; RESP 18
== END 2019-09-07 21:27 | disposition home or self-care (01) ==
LOC: EC 19:47
DX: M25.462 Effusion, left knee (principal); E11.9 Type 2 diabetes mellitus without complications; M19.90 Unspecified osteoarthritis, unspecified site; F17.200 Nicotine dependence, unspecified, uncomplicated; Z79.4 Long term (current) use of insulin; Z88.0 Allergy status to penicillin; Z86.718 Personal history of other venous thrombosis and embolism; Z96.653 Presence of artificial knee joint, bilateral
CPT/HCPCS: 73562; 99283; 96372; J1885

== ENCOUNTER 2024-04-09 20:01 | Emergency (ER) | payer BC, OTHER ==
--- NOTE | 2024-04-09 21:59 | ED ---
General Adult HPI - General Source: patient, family, RN notes reviewed Mode of arrival: ambulatory Limitations: no limitations <Lizbet Patterson - Last Filed: 04/10/24 00:20> <Megan Anand - Last Filed: 04/10/24 05:27> - General Chief complaint: Nausea/Vomiting/Diarrhea Stated complaint: Constipation Time Seen by Provider: 04/09/24 21:19 - History of Present Illness Initial comments: 68-year-old male presents to the emergency department for evaluation of rectal pain. Patient states that over the past 3 days he has noticed he has been constipated. He notes that today he developed significant rectal pain. He states that he feels like there is a baseball in his rectum. He reports that the pain is worse when lying down. He states that he took magnesium citrate and since then has had loose watery stools but he still feels that there is pain and pressure in his rectum. Denies significant abdominal pain, nausea, vomiting, fevers, melena, . Denies anal intercourse, possibility of STD. (Lizbet Patterson) - Related Data Home Medications Medication Instructions Recorded Confirmed INSULIN ASPART (NovoLOG) [NovoLOG See Protocol SQ ACHS 11/15/17 09/07/19 (formulary)] Insulin Glargine,Hum.rec.anlog 70 unit SQ DAILY 09/07/19 09/07/19 [Lantus Solostar] metFORMIN HCL [metFORMIN HCL ER 1,000 mg PO BID 09/07/19 09/07/19 Osmotic] Previous Rx's Medication Instructions Recorded Ciprofloxacin HCl [Cipro] 500 mg PO Q12HR 7 Days #14 tab 04/10/24 Docusate Sodium 250 mg PO DAILY #14 capsule 04/10/24 metroNIDAZOLE [Flagyl] 500 mg PO TID 7 Days #21 tab 04/10/24 Allergies Allergy/AdvReac Type Severity Reaction Status Date / Time Penicillins Allergy Unknown Unknown Verified 04/09/24 21:13 Childhood Review of Systems ROS Other: All systems not noted in ROS Statement are negative. <Lizbet Patterson - Last Filed: 04/10/24 00:20> ROS Other: All systems not noted in ROS Statement are negative. <Megan Anand - Last Filed: 04/10/24 05:27> ROS Statement: Those systems with pertinent positive or pertinent negative responses have been documented in the HPI. Past Medical History Past Medical History: Diabetes Mellitus, Deep Vein Thrombosis (DVT), Hypertension, Osteoarthritis (OA) Additional Past Medical History / Comment(s): BLOOD CLOT IN RIGHT LEG A CHILD. , STATES JAUNDICE (HEPATITIS) CHILD. pt currently has kidney infection taking cipro to follow up with dr christensen prior to procedure History of Any Multi-Drug Resistant Organisms: None Reported Past Surgical History: Appendectomy, Back Surgery, Orthopedic Surgery Additional Past Surgical History / Comment(s): ARTHROSCOPY KNEE-TENDON FROM LEFT KNEE TO RIGHT KNEE., JOSSELYN THUMB SURGERY,JOSSELYN.KNEE ARTHROPLASTY. DISCECTOMY LUMBAR SPINE. Past Anesthesia/Blood Transfusion Reactions: No Reported Reaction Additional Past Anesthesia/Blood Transfusion Reaction / Comment(s): WAKES UP DUR ING SURGERY. Past Psychological History: No Psychological Hx Reported Smoking Status: Never smoker Past Alcohol Use History: None Reported Past Drug Use History: None Reported - Past Family History Father History Unknown: Yes Family Medical History: Cancer Additional Family Medical History / Comment(s): LUNG CANCER Mother Family Medical History: Blood Disorder, CVA/TIA <Lizbet Patterson - Last Filed: 04/10/24 00:20> General Exam Limitations: no limitations General appearance: alert, in no apparent distress Head exam: Present: atraumatic, normocephalic, normal inspection Eye exam: Present: normal appearance, PERRL, EOMI. Absent: scleral icterus, conjunctival injection, periorbital swelling ENT exam: Present: normal exam, mucous membranes moist Neck exam: Present: normal inspection. Absent: tenderness, meningismus, lymphadenopathy Respiratory exam: Present: normal lung sounds bilaterally. Absent: respiratory distress, wheezes, rales, rhonchi, stridor Cardiovascular Exam: Present: regular rate, normal rhythm, normal heart sounds. Absent: systolic murmur, diastolic murmur, rubs, gallop, clicks GI/Abdominal exam: Present: soft, normal bowel sounds. Absent: distended, tenderness, guarding, rebound, rigid Rectal exam: Present: tenderness Extremities exam: Present: normal inspection, full ROM, normal capillary refill. Absent: tenderness, pedal edema, joint swelling, calf tenderness Back exam: Present: normal inspection Neurological exam: Present: alert, oriented X3 Psychiatric exam: Present: normal affect, normal mood Skin exam: Present: warm, dry, intact, normal color. Absent: rash <Lizbet Patterson - Last Filed: 04/10/24 00:20> Course Vital Signs 04/09/24 04/10/24 21:13 04:20 Temperature 98.4 F 98.2 F Pulse Rate 96 80 Respiratory 19 18 Rate Blood Pressure 119/74 112/74 O2 Sat by Pulse 97 97 Oximetry Medical Decision Making - Lab Data Result diagrams: 04/09/24 22:45 04/09/24 22:45 <Lizbet Patterson - Last Filed: 04/10/24 00:20> - Lab Data Result diagrams: 04/09/24 22:45 04/09/24 22:45 <Megan Anand - Last Filed: 04/10/24 05:27> - Medical Decision Making Was pt. sent in by a medical professional or institution (, PA, COGNOS ANALYST, urgent care, hospital, or senior care...) When possible be specific @ -[No] Did you speak to anyone other than the patient for history (EMS, parent, family, police, friend...)? What history was obtained from this source @ -[No] Did you review nursing and triage notes (agree or disagree)? Why? @ -[I reviewed and agree with nursing and triage notes] Were old charts reviewed (outside hosp., previous admission, EMS record, old EKG, old radiological studies, urgent care reports/EKG's, senior care records)? Report findings @ -[No old charts were reviewed] Differential Diagnosis (chest pain, altered mental status, abdominal pain women, abdominal pain men, vaginal bleeding, weakness, fever, dyspnea, syncope, headache, dizziness, GI bleed, back pain, seizure, CVA, palpatations, mental health, musculoskeletal)? @ -[Differential Abdominal Pain Men: Appendicitis, cholecystitis, diverticulosis, ischemic bowel, pancreatitis, hepatitis, UTI, gastroenteritis, AAA, incarcerated hernia, bowel obstruction, constipation, inflammatory bowel, hepatitis, peptic ulcer disease, splenic infarction, perforated viscus, testicular torsion, this is not meant to be an all-inclusive list ] EKG interpreted by me (3pts min.). @ -None X-rays interpreted by me (1pt min.). @ -[None done] CT interpreted by me (1pt min.). @ -[CT abdomen pelvis Diffuse wall thickening within the rectum, fluid-filled small bowel loops and colon] U/S interpreted by me (1pt. min.). @ -[None done] What testing was considered but not performed or refused? (CT, X-rays, U/S, labs)? Why? @ -[None] What meds were considered but not given or refused? Why? @ -[None] Did you discuss the management of the patient with other professionals (professionals i.e. , PA, COGNOS ANALYST, lab, RT, psych nurse, 7th grade social studies teacher, senior software quality engineer, teacher, chief administrative officer, residential case manager)? Give summary @ -[No] Was smoking cessation discussed for >3mins.? @ -[No] Was critical care preformed (if so, how long)? @ -[No] Were there social determinants of health that impacted care today? How? (Homelessness, low income, unemployed, alcoholism, drug addiction, transportation, low edu. Level, literacy, decrease access to med. care, halfway, re hab)? @ -[No] Was there de-escalation of care discussed even if they declined (Discuss DNR or withdrawal of care, Hospice)? DNR status @ -[No] What co-morbidities impacted this encounter? (DM, HTN, Smoking, COPD, CAD, Cancer, CVA, ARF, Chemo, Hep., AIDS, mental health diagnosis, sleep apnea, morbi d obesity)? @ -[None] Was patient admitted / discharged? Hospital course, mention meds given and ro [place], prescriptions, significant lab abnormalities, going to OR and other pertinent info. @ -[Patient presented to the emergency department for evaluation of rectal pain and constipation. Symptoms of rectal pain started today. He notes that he feels significant pain and pressure in his rectum. He denies fever, chills, nausea, vomiting. He admits to loose stools. Rectal exam was performed, no visible abscess, fissure, hemorrhoid. Laboratory studies obtained significant for leukocytosis with WBC of 22.7. CBC shows normal electrolytes, BUN,creatinine. Elevation of lipase at 554. Patient was provided with a dose of Toradol in the ED. He underwent a CT scan which shows rectal wall thickening. ] Undiagnosed new problem with uncertain prognosis? @ -[No] Drug Therapy requiring intensive monitoring for toxicity (Heparin, Nitro, Insulin, Cardizem)? @ -[No] Were any procedures done? @ -[No] Diagnosis/symptom? @ -[proctitis] Acute, or Chronic, or Acute on Chronic? @ -[Acute] Uncomplicated (without systemic symptoms) or Complicated (systemic symptoms)? @ -complicated Side effects of treatment? @ -[No] Exacerbation, Progression, or Severe Exacerbation? @ -[No] Poses a threat to life or bodily function? How? (Chest pain, [place], SD, pneumonia, PE, COPD, DKA, ARF, appy, cholecystitis, CVA, Diverticulitis, Homicidal, Suicidal, threat to staff... and all critical care pts) @ -[No] (Lizbet Patterson) I personally saw and evaluated the patient, normal I discussed with the patient that he has proctitis and needs an colonoscopy for evaluation I did offer to keep the patient in observation overnight to receive antibiotics however patient is eager for discharge home brother is agreeable to plan for discharge home. Patient will be prescribed Cipro and Flagyl due to his allergy to penicillin. He will also be given a stool softener for comfort. I again reiterated the importance of follow-up. Close return parameters and the patient was discharged home in stable condition. (Megan Anand) - Lab Data Lab Results 04/09/24 04/09/24 04/10/24 Range/Units 22:45 22:45 00:39 WBC 22.7 H (3.8-10.6) k/uL RBC 6.04 H (4.30-5.90) m/uL Hgb 17.3 (13.0-17.5) gm/dL Hct 52.7 (39.0-53.0) % MCV 87.1 (80.0-100.0) fL MCH 28.6 (25.0-35.0) pg MCHC 32.9 (31.0-37.0) g/dL RDW 13.5 (11.5-15.5) % Plt Count 323 (150-450) k/uL MPV 7.0 Neutrophils % 87 % Lymphocytes % 5 % Monocytes % 5 % Eosinophils % 1 % Basophils % 0 % Neutrophils # 19.9 H (1.3-7.7) k/uL Lymphocytes # 1.2 (1.0-4.8) k/uL Monocytes # 1.2 H (0-1.0) k/uL Eosinophils # 0.2 (0-0.7) k/uL Basophils # 0.1 (0-0.2) k/uL Sodium 137 (137-145) mmol/L Potassium 3.7 (3.5-5.1) mmol/L Chloride 104 (98-107) mmol/L Carbon Dioxide 21 L (22-30) mmol/L Anion Gap 12 mmol/L BUN 23 H (9-20) mg/dL Creatinine 1.11 (0.66-1.25) mg/dL Est GFR (CKD-EPI)AfAm 80 (>60 ml/min/1.73 sqM) Est GFR (CKD-EPI)NonAf 69 (>60 ml/min/1.73 sqM) Glucose 138 H (74-99) mg/dL Calcium 9.2 (8.4-10.2) mg/dL Total Bilirubin 0.9 (0.2-1.3) mg/dL AST 20 (17-59) U/L ALT 18 (4-49) U/L Alkaline Phosphatase 108 (38-126) U/L Total Protein 7.2 (6.3-8.2) g/dL Albumin 4.7 (3.5-5.0) g/dL Amylase 87 (30-110) U/L Lipase 554 H (23-300) U/L Urine Color Yellow Urine Appearance Clear (Clear) Urine pH 5.5 (5.0-8.0) Ur Specific [place] 1.044 H (1.001-1.035) Urine Protein Negative (Negative) Urine Glucose (UA) Negative (Negative) Urine Ketones 1+ H (Negative) Urine Blood Trace H (Negative) Urine Nitrite Negative (Negative) Urine Bilirubin Negative (Negative) Urine Urobilinogen <2.0 (<2.0) mg/dL Ur Leukocyte Esterase Negative (Negative) Urine RBC 2 (0-5) /hpf Urine WBC 1 (0-5) /hpf Ur Squamous Epith Cells <1 (0-4) /hpf Urine Mucus Rare H (None) /hpf Disposition Is patient prescribed a controlled substance at d/c from ED?: No <Lizbet Patterson - Last Filed: 04/10/24 00:20> Is patient prescribed a controlled substance at d/c from ED?: No <Megan Anand P - Last Filed: 04/10/24 05:27> Clinical Impression: Proctitis, Leukocytosis Disposition: HOME SELF-CARE Condition: Stable Prescriptions: Ciprofloxacin HCl [Cipro] 500 mg PO Q12HR 7 Days #14 tab Docusate Sodium 250 mg PO DAILY #14 capsule metroNIDAZOLE [Flagyl] 500 mg PO TID 7 Days #21 tab Referrals: Nonstaff,Physician [Primary Care Provider] - 1-2 days
[2024-04-09 22:52] LABS: Basophils # (A) 0.1 k/uL (0-0.2); Basophils % (A) 0 %; Eosinophils # (A) 0.2 k/uL (0-0.7); Eosinophils % (A) 1 %; HCT 52.7 % (39.0-53.0); HGB 17.3 gm/dL (13.0-17.5); Lymphocytes # (A) 1.2 k/uL (1.0-4.8); Lymphocytes % (A) 5 %; MCH 28.6 pg (25.0-35.0); MCHC 32.9 g/dL (31.0-37.0); MCV 87.1 fL (80.0-100.0); Monocytes # (A) 1.2 k/uL (0-1.0); Monocytes % (A) 5 %; Neutrophils # (A) 19.9 k/uL (1.3-7.7); Neutrophils % (A) 87 %; Platelet Count 323 k/uL (150-450); RBC 6.04 m/uL (4.30-5.90); RDW 13.5 % (11.5-15.5); WBC 22.7 k/uL (3.8-10.6)
[2024-04-09] MEDS: KETOROLAC 15 MG/ML 1 ML VIAL IVP STA (22:53)
[2024-04-09 23:09] LABS: ALT 18 U/L (4-49); AST 20 U/L (17-59); African American GFR (CKD) 80 (>60 ml/min/1.73 sqM); Albumin 4.7 g/dL (3.5-5.0); Alkaline Phosphatase 108 U/L (38-126); Amylase 87 U/L (30-110); Anion Gap 12 mmol/L; Blood Urea Nitrogen 23 mg/dL (9-20); Calcium 9.2 mg/dL (8.4-10.2); Carbon Dioxide 21 mmol/L (22-30); Chloride 104 mmol/L (98-107); Glucose 138 mg/dL (74-99); Lipase 554 U/L (23-300); Non-African American GFR(CKD) 69 (>60 ml/min/1.73 sqM); Potassium 3.7 mmol/L (3.5-5.1); Sodium 137 mmol/L (137-145); Total Bilirubin 0.9 mg/dL (0.2-1.3); Total Protein 7.2 g/dL (6.3-8.2)
--- NOTE | 2024-04-09 23:59 | CT ---
EXAMINATION TYPE: CT abdomen pelvis w con DATE OF EXAM: 04/09/2024 COMPARISON: None INDICATION: c/o constipation x 3 days, 1-2 hours ago the patient drank 1 bottle of mag citrate, not h aving liquid stool with incont, but reports the large stool that is causing constipation has not pass ed. c/o rectal pain DLP: 2062.2 mGycm, Automated exposure control for dose reduction was used. CONTRAST: 100 mL of Isovue 300. Study performed without Oral Contrast TECHNIQUE: Axial images were obtained from above the diaphragm to the pubic rami in the axial plane a t 5 mm thick sections. Reconstructed images are reviewed on the computer in the coronal plane. FINDINGS: Limited CT sections are obtained the lung bases. Dense calcifications in the right lower lobe. Visua lized lung jackson are otherwise clear. CT ABDOMEN: Liver: Normal Spleen: Normal Pancreas: Normal Adrenal glands: The adrenal glands are normal. Gallbladder: Normal Kidneys: No masses are evident. No hydronephrosis is present. There is a 3.4 cm exophytic cyst on t he posterior mid right kidney. Delayed images were obtained through the kidneys, which remain unrema rkable. Aorta: Vascular calcification is within the aorta. Inferior vena cava: Normal. CT PELVIS: Postsurgical changes in the morning artifact from pedicle screws through the lumbar spine a present Some thickening within the rectum is not excluded. Correlate with the patient's symptoms. Minimal per irectal stranding may be present. Correlate for proctitis significant fecal retention is not evident. There is fluid throughout small bowel loops as well as colon. No suspicious dilated loops of bowel a re evident studies without oral contrast limiting bowel evaluation.. Redundant sigmoid colon. Appendix: Not identified. There are inflammatory changes or dilated tubular structures evident. Urinary bladder: Normal. Genitourinary structures: Prostate is prominent Osseous structures: No suspicious lytic or sclerotic lesions. IMPRESSION: 1. Some diffuse wall thickening within the rectum. Correlate for proctitis. 2. Fluid-filled small bowel loops and colon. Loops of bowel are nondilated. 3. No significant fecal retention. Some mild fecal debris is distal redundant sigmoid colon
[2024-04-10 00:47] LABS: Appearance,Urine Clear (Clear); Bilirubin,Urine Negative (Negative); Blood,Urine Trace (Negative); Color,Urine Yellow; Glucose,Urine (UA) Negative (Negative); Ketones,Urine 1+ (Negative); Leukocyte Esterase,Urine Negative (Negative); Mucus,Urine Rare /hpf; Nitrite,Urine Negative (Negative); PH, Urine 5.5 (5.0-8.0); Protein,Urine Negative (Negative); RBC,Urine 2 /hpf (0-5); Specific Gravity,Urine 1.044 (1.001-1.035); Squamous Epithelial Cell,Urine <1 /hpf (0-4); Urobilinogen,Urine <2.0 mg/dL (<2.0); WBC,Urine 1 /hpf (0-5)
[2024-04-10] MEDS: metroNIDAZOLE-NS PMX 500 MG in SALINE 1 100ML.BAG IVPB STA (01:54)
[2024-04-10 04:49] VITALS: BP 112/74; PULSE 80; RESP 18; TEMP 98.2
[2024-04-11 12:54] LABS: N. gonorrhoeae,PCR Negative (Negative)
[2024-04-11 13:08] LABS: C. trachomatis,PCR Negative (Negative)
== END 2024-04-10 04:23 | disposition home or self-care (01) ==
LOC: EC 20:01
DX: K62.89 Other specified diseases of anus and rectum (principal); D72.829 Elevated white blood cell count, unspecified; Z88.0 Allergy status to penicillin
CPT/HCPCS: 36415; 80053; 82150; 83690; 85025; 74177; 99284; 96365; 96367; 96366; 96375; J1885; Q9967; 81001; 87491; 87591

== ENCOUNTER 2024-05-19 11:15 | Day surgery (SDC) | payer MEDICARE ==
[2024-05-19] MEDS: IV FLUID CONTINUATION 1,000 ML IV ONE (12:49)
[2024-05-19 12:56] VITALS: RESP 16; TEMP 97.5
[2024-05-19 13:02] LABS: Glucose,Whole Blood 101 mg/dL (70-110)
[2024-05-19] MEDS: LACTATED RINGERS 1,000 ML IV SCH (13:02)
[2024-05-19] MEDS ORDERED: PROPOFOL 10 MG/ML 20 ML VIAL IV ONE (14:46)
--- NOTE | 2024-05-19 15:03 | P.GSHP ---
History of Present Illness H&P Date: 05/19/24 Chief Complaint: screening colonoscopy this a 68-year-old male presents today for screening colonoscopy. Patient denies a significant GI complaints. Patient states he can't underwent the last time he had a colonoscopy. He is unsure who is family doctor's also. Past Medical History Past Medical History: Diabetes Mellitus, Deep Vein Thrombosis (DVT), Hearing Disorder / Deafness, Hyperlipidemia, Hypertension, Osteoarthritis (OA) Additional Past Medical History / Comment(s): BLOOD CLOT IN RIGHT LEG A CHILD., STATES JAUNDICE (HEPATITIS) CHILD. Intermittent constipation/diarrhea; pt. states blood sugars have been between 90-110, hasn't been taking metformin or insulin. no meds for blood pressure or cholesterol. EYAK- no hearing aids. History of Any Multi-Drug Resistant Organisms: None Reported Past Surgical History: Appendectomy, Back Surgery, Orthopedic Surgery Additional Past Surgical History / Comment(s): ARTHROSCOPY KNEE-TENDON FROM LEFT KNEE TO RIGHT KNEE., JOSSELYN THUMB SURGERY, JOSSELYN.KNEE ARTHROPLASTY. DISCECTOMY LUMBAR SPINE. Past Anesthesia/Blood Transfusion Reactions: No Reported Reaction Additional Past Anesthesia/Blood Transfusion Reaction / Comment(s): WAKES UP DURING SURGERY. Smoking Status: Never smoker - Past Family History Father History Unknown: Yes Family Medical History: Cancer Additional Family Medical History / Comment(s): LUNG CANCER Mother Family Medical History: Blood Disorder, CVA/TIA Medications and Allergies Home Medications Medication Instructions Recorded Confirmed Type INSULIN ASPART (NovoLOG) [NovoLOG See Protocol SQ ACHS 11/15/17 05/19/24 History (formulary)] Insulin Glargine,Hum.rec.anlog 70 unit SQ HS 09/07/19 05/19/24 History [Lantus Solostar] metFORMIN HCL [metFORMIN HCL ER 1,000 mg PO BID 09/07/19 05/19/24 History Osmotic] Docusate Sodium 250 mg PO DAILY #14 capsule 04/10/24 05/19/24 Rx Dulaglutide [Trulicity] 3 mg SQ TU 05/15/24 05/19/24 History Allergies Allergy/AdvReac Type Severity Reaction Status Date / Time Penicillins Allergy Unknown Unknown Verified 05/19/24 12:52 Childhood Surgical - Exam Vital Signs Temp Pulse Resp BP Pulse Ox 97.5 F L 68 16 183/83 98 05/19/24 12:54 05/19/24 12:54 05/19/24 12:54 05/19/24 12:54 05/19/24 12:54 - General well developed, well nourished, no distress - Eyes PERRL - ENT normal pinna - Neck no masses - Respiratory normal expansion - Cardiovascular Rhythm: regular - Abdomen Abdomen: soft, non tender Assessment and Plan Assessment: we'll perform screening colonoscopy.
--- NOTE | 2024-05-19 15:06 | P.OP ---
Date of Procedure: 05/19/24 Preoperative Diagnosis: screening colonoscopy Postoperative Diagnosis: normal colon Procedure(s) Performed: colonoscopy Anesthesia: MAC Surgeon: Jean Maldonado Pathology: none sent Condition: stable Disposition: PACU Description of Procedure: the patient's placed on the endoscopy table in the lateral position. He received IV sedation. Digital rectal exam performed. This revealed no abnormalities.d. The flexible colonoscope was then placed patient anus and passed throughout the entire colon. the patient is a poor colon prep. There is a large amount of green liquid stool throughout the colon.Ileocecal valve was visualized. The cecum, ascending and transverse colon appeared normal. The descending and sigmoid colon appeared normal. Scope was brought back the rectum and this appeared normal. Scope withdrawn for patient.
[2024-05-19 15:24] VITALS: BP 159/86; PULSE 68
== END 2024-05-19 15:43 | disposition home or self-care (01) ==
LOC: ORWHC2ENDO 11:15
PROVIDERS: ATTEND Surgery
DX: Z12.11 Encounter for screening for malignant neoplasm of colon (principal); E11.9 Type 2 diabetes mellitus without complications; E78.5 Hyperlipidemia, unspecified; I10 Essential (primary) hypertension; M19.90 Unspecified osteoarthritis, unspecified site; H91.90 Unspecified hearing loss, unspecified ear; Z86.718 Personal history of other venous thrombosis and embolism; Z88.0 Allergy status to penicillin; Z90.49 Acquired absence of other specified parts of digestive tract; Z79.4 Long term (current) use of insulin; Z79.84 Long term (current) use of oral hypoglycemic drugs; Z79.85 Long-term (current) use of injectable non-insulin antidiabetic drugs; Z79.899 Other long term (current) drug therapy
CPT/HCPCS: 45378; J2704